=== PATIENT | male | born 1970 | race Caucasian/White ===

== ENCOUNTER 2018-09-16 03:59 | Inpatient (IN) ==
[2018-09-16] MEDS ORDERED: 0.9 % Sodium Chloride 1,000 ML IVC ONE (04:26)
[2018-09-16] MEDS ORDERED: Td (TENIVAC) Vaccine 0.5 ML VIAL IM ONE (04:26)
[2018-09-16] MEDS ORDERED: Isovue-370 500 ML INFUS..BTL IV ONE (04:26)
--- NOTE | 2018-09-16 04:31 | Emergency Department Note ---
Disposition Clinical Impression: Cellulitis of right upper extremity, Capsulitis of right shoulder, IVDU (intravenous drug user) Myositis of right upper arm Qualifiers: Myositis type: infective Qualified Code(s): M60.021 - Infective myositis, right upper arm Disposition: Admitted As Inpatient Condition: Fair Extremity Problem HPI - General Chief complaint: ED Extremity Problem,Nontraumatic Stated complaint: "Right Arm Edema" Time Seen by Provider: 09/16/18 04:12 Source: patient Mode of arrival: private vehicle Limitations: no limitations Nursing Notes Reviewed: Yes Vital Signs Reviewed: Yes - History of Present Illness HPI Narrative: This 48-year-old male with a long chronic history of IV drug use including heroin and methamphetamines. Presents [facility] department for evaluation of right arm swelling, redness. Patient states yesterday he used both heroin and methamphetamine in the antecubital area of his right arm, he did notice later in the day that he had some redness, swelling to this area. He also states he knows he has a "bad rotator cuff" to seem affected right shoulder. He states he only injects from the antecubitals down. Patient denies numbness, tingling, paresthesias, decreased range of motion, decreased strength. Pt Subjective Complaint: extremity pain, extremity swelling Onset (ago): day(s) Consistency: constant Injury Location: right, upper extremity Pain Scale: 7 Radiation: none Improves with: nothing Worsens with: palpation Associated symptoms: Reports: swelling, redness Context: other - Related Data Home Medications Medication Instructions Recorded Confirmed Ibuprofen [Motrin Ib] 2,400 mg PO TID PRN 09/16/18 09/16/18 Allergies Allergy/AdvReac Type Severity Reaction Status Date / Time No Known Allergies Allergy Verified 09/16/18 04:09 All systems ED: reviewed and negative except as stated. Review of Systems: As Per HPI Past Medical History - Past Medical History Attestation: Yes The following information was validated with the patient. Source: patient Medical history: Reports: hepatitis, hypertension Surgical history: Reports: orthopedic, other (Right clavicle) Psychiatric history: Reports: no psych history - Social History Smoking Status: Current every day smoker Smokeless Tobacco Status: No Alcohol use: Reports: none Drug use: Reports: marijuana, methamphetamine Physical Exam - General Limitations: no limitations General appearance: alert, in no apparent distress - Head Head exam: atraumatic, normocephalic, normal inspection - Eye Eye exam: Present: normal appearance - ENT ENT exam: mucous membranes moist - Neck Neck exam: Present: normal inspection, full ROM, trachea midline - Chest Chest inspection: Present: normal inspection, symmetric chest wall rise - Expanded Upper Extremity Exam Shoulder exam: Present: swelling (Slight to right shoulder), other Arm exam: Present: tenderness (Medial aspect from mid humeral area distally), swelling (Radial aspect anterior lateral mid humeral distally), erythema (Sling, irregular circumferential in the swelling) Elbow exam: Present: tenderness (Antecubital, more medial than lateral anteriorly), swelling (Antecubital, more medial than lateral anteriorly), erythema (Slight, irregular circumferentially to the swelling). Absent: pain w/ pronation/supination Forearm/Wrist exam: Present: normal inspection, full ROM Hand exam: Present: normal inspection, full ROM Vascular exam: Normal: capillary refill, radial pulse - Neurological Exam Neurological exam: Present: alert, oriented X3 - Psychiatric Psychiatric exam: Present: normal affect, normal mood - Skin Skin exam: Present: warm, dry, intact, normal color Course Course Narrative: Well-developed male in no acute distress. Respirations are easy and even. Upon arrival patient is afebrile, normotensive, non-tachycardic. Patient noted with small sores all over his body in various stages of healing, no apparent abscesses, lesions. Right upper extremity from mid forearm proximally to mid humerus on the medial, anterior aspect noted with edema, tenderness with palpation, warm to touch, slightly erythematous circumferential's the edema. Area is blanching. Concern for deep tissue infection, abscess in the muscles, fasciitis. Patient with any systemic symptoms at this time however we will obtain blood cultures and lactic acid. Obtain basic labs, we will treat, and a CT with contrast of the right upper extremity and reevaluate. Pt will be transitioned to the day shift team due to provider shift change Vital Signs Temperature 98.3 F 09/16/18 04:06 Pulse Rate 103 09/16/18 04:06 Respiratory Rate 16 09/16/18 04:06 Blood Pressure 157/99 09/16/18 04:06 O2 Sat by Pulse Oximetry 97 09/16/18 04:06 Temperature 98.1 F 09/16/18 19:42 Pulse Rate 75 09/16/18 19:42 Respiratory Rate 16 09/16/18 19:42 Blood Pressure 162/105 09/16/18 20:50 O2 Sat by Pulse Oximetry 98 09/16/18 19:42 Oxygen Delivery Oxygen Delivery Room Air Extremity Problem, Nontraumati - Lab Data Result diagrams: 09/16/18 05:39 09/16/18 05:39 Lab Results 09/16/18 09/16/18 09/16/18 Range/Units 04:40 05:20 05:39 WBC 10.2 (4.3-11.1) K/mcL RBC 3.91 L (4.19-5.50) M/mcL Hgb 11.1 L (12.9-16.9) g/dL Hct 34.9 L (37.5-50.1) % MCV 89.3 (83.0-100.0) fL MCH 28.4 (28.0-33.3) pg MCHC 31.8 (31.6-35.5) g/dL RDW 13.7 (11.5-14.5) % Plt Count 289 (140-400) K/mcL MPV 10.0 (9.4-12.4) fL Immature Gran % 0.4 (0-4) % Seg Neutrophils % 60.1 % Lymphocytes % 23.3 % Monocytes % 13.3 % Eosinophils % 2.7 % Basophils % 0.2 % Neutrophils # 6.1 (1.6-8.9) K/mcL Lymphocytes # 2.4 (0.6-4.6) K/mcL Monocytes # 1.4 H (0.0-1.3) K/mcL Eosinophils # 0.3 (0.0-0.6) K/mcL Basophils # 0.0 (0.0-0.2) K/mcL Sodium (136-145) mEq/L Potassium (3.5-5.1) mEq/L Chloride (98-107) mEq/L Carbon Dioxide (23-29) mEq/L BUN (6-20) mg/dL Creatinine (0.70-1.30) mg/dL Est GFR ( Amer) (> 60) Est GFR (Non-Af Amer) (> 60) BUN/Creatinine Ratio (6-26) Glucose (70-105) mg/dL Calculated Osmolality (280-300) Lactic Acid 0.9 (0.5-2.2) mmol/L Calcium (8.6-10.3) mg/dL Total Bilirubin (0.3-1.0) mg/dL Direct Bilirubin (0.0-0.2) mg/dL Indirect Bilirubin (0.0-1.2) mg/dL AST (13-39) Units/L ALT (7-52) Units/L Alkaline Phosphatase (34-104) Units/L Serum Total Protein (6.4-8.9) g/dL Albumin (3.5-5.7) g/dL Globulin (2.4-3.5) g/dL Albumin/Globulin Ratio (1.1-2.2) Specimen Rejected Clotted 09/16/18 Range/Units 05:39 WBC (4.3-11.1) K/mcL RBC (4.19-5.50) M/mcL Hgb (12.9-16.9) g/dL Hct (37.5-50.1) % MCV (83.0-100.0) fL MCH (28.0-33.3) pg MCHC (31.6-35.5) g/dL RDW (11.5-14.5) % Plt Count (140-400) K/mcL MPV (9.4-12.4) fL Immature Gran % (0-4) % Seg Neutrophils % % Lymphocytes % % Monocytes % % Eosinophils % % Basophils % % Neutrophils # (1.6-8.9) K/mcL Lymphocytes # (0.6-4.6) K/mcL Monocytes # (0.0-1.3) K/mcL Eosinophils # (0.0-0.6) K/mcL Basophils # (0.0-0.2) K/mcL Sodium 137 (136-145) mEq/L Potassium 4.1 (3.5-5.1) mEq/L Chloride 106 (98-107) mEq/L Carbon Dioxide 28 (23-29) mEq/L BUN 12 (6-20) mg/dL Creatinine 0.57 L (0.70-1.30) mg/dL Est GFR ( Amer) > 60 (> 60) Est GFR (Non-Af Amer) > 60 (> 60) BUN/Creatinine Ratio 21 (6-26) Glucose 177 H (70-105) mg/dL Calculated Osmolality 288 (280-300) Lactic Acid (0.5-2.2) mmol/L Calcium 8.0 L (8.6-10.3) mg/dL Total Bilirubin 0.2 L (0.3-1.0) mg/dL Direct Bilirubin 0.0 (0.0-0.2) mg/dL Indirect Bilirubin 0.2 (0.0-1.2) mg/dL AST 14 (13-39) Units/L ALT 14 (7-52) Units/L Alkaline Phosphatase 60 (34-104) Units/L Serum Total Protein 5.3 L (6.4-8.9) g/dL Albumin 2.7 L (3.5-5.7) g/dL Globulin 2.6 (2.4-3.5) g/dL Albumin/Globulin Ratio 1.0 L (1.1-2.2) Specimen Rejected S.Vidya - Tho Situation: Demographics, MOA Background: Presenting Complaint, Relevant PMH, Meds, & Allergies Assessment: Vital Signs, Course and respsone to treatment, Exam Concerns, Patient/Family Expectation, Pertinant Lab Results, Outstanding Labs Recommendation: Barrier(s) to disposition, Recommendation based on pending studies, treatments, or consults S.B.AEva Report Given to: MONTSE Alonso Repor Time: 06:15
[2018-09-16] MEDS ORDERED: Ketorolac 15 MG/ML VIAL IVP ONE (04:57)
[2018-09-16 05:56] LABS: Basophils % 0.2 %; Eosinophils # 0.3 K/mcL (0.0-0.6); Eosinophils % 2.7 %; Hematocrit 34.9 % (37.5-50.1); Hemoglobin 11.1 g/dL (12.9-16.9); Immature Granulocytes % 0.4 % (0-4); Lymphocytes # 2.4 K/mcL (0.6-4.6); Lymphocytes % 23.3 %; Mean Corpuscular HGB Conc 31.8 g/dL (31.6-35.5); Mean Corpuscular Hemoglobin 28.4 pg (28.0-33.3); Mean Corpuscular Volume 89.3 fL (83.0-100.0); Monocytes # 1.4 K/mcL (0.0-1.3); Monocytes % 13.3 %; Neutrophils # 6.1 K/mcL (1.6-8.9); Platelet Count 289 K/mcL (140-400); Red Blood Count 3.91 M/mcL (4.19-5.50); Red Cell Distribution Width 13.7 % (11.5-14.5); Segmented Neutrophils % 60.1 %
--- NOTE | 2018-09-16 06:01 | Emergency Department Note ---
Disposition Clinical Impression: Cellulitis of right upper extremity, Capsulitis of right shoulder, IVDU (intravenous drug user) Myositis of right upper arm Qualifiers: Myositis type: infective Qualified Code(s): M60.021 - Infective myositis, right upper arm Disposition: Admitted As Inpatient Condition: Fair General Adult HPI - General Chief complaint: ED Extremity Problem,Nontraumatic Stated complaint: "Right Arm Edema" Time Seen by Provider: 09/16/18 04:12 Source: patient Mode of arrival: private vehicle Limitations: no limitations Nursing Notes Reviewed: Yes Vital Signs Reviewed: Yes - History of Present Illness Pain Scale: 7 - Related Data Home Medications Medication Instructions Recorded Confirmed Ibuprofen [Motrin Ib] 2,400 mg PO TID PRN 09/16/18 09/16/18 Allergies Allergy/AdvReac Type Severity Reaction Status Date / Time No Known Allergies Allergy Verified 09/16/18 04:09 Past Medical History - Past Medical History Medical history: Reports: hepatitis, hypertension Surgical history: Reports: orthopedic, other (Right clavicle) Psychiatric history: Reports: no psych history - Social History Smoking Status: Current every day smoker Smokeless Tobacco Status: No Alcohol use: Reports: none Drug use: Reports: marijuana, methamphetamine Physical Exam - General Limitations: no limitations General appearance: alert, in no apparent distress Course Vital Signs Temperature 98.3 F 09/16/18 04:06 Pulse Rate 103 09/16/18 04:06 Respiratory Rate 16 09/16/18 04:06 Blood Pressure 157/99 09/16/18 04:06 O2 Sat by Pulse Oximetry 97 09/16/18 04:06 Temperature 98.1 F 09/16/18 19:42 Pulse Rate 75 09/16/18 19:42 Respiratory Rate 16 09/16/18 19:42 Blood Pressure 185/108 09/16/18 19:42 O2 Sat by Pulse Oximetry 98 09/16/18 19:42 Oxygen Delivery Oxygen Delivery Room Air Medical Decision Making - Lab Data Lab results reviewed: Yes I reviewed the patient's lab results. Result diagrams: 09/16/18 05:39 09/16/18 05:39 Lab Results 09/16/18 09/16/18 09/16/18 Range/Units 04:40 05:20 05:39 WBC 10.2 (4.3-11.1) K/mcL RBC 3.91 L (4.19-5.50) M/mcL Hgb 11.1 L (12.9-16.9) g/dL Hct 34.9 L (37.5-50.1) % MCV 89.3 (83.0-100.0) fL MCH 28.4 (28.0-33.3) pg MCHC 31.8 (31.6-35.5) g/dL RDW 13.7 (11.5-14.5) % Plt Count 289 (140-400) K/mcL MPV 10.0 (9.4-12.4) fL Immature Gran % 0.4 (0-4) % Seg Neutrophils % 60.1 % Lymphocytes % 23.3 % Monocytes % 13.3 % Eosinophils % 2.7 % Basophils % 0.2 % Neutrophils # 6.1 (1.6-8.9) K/mcL Lymphocytes # 2.4 (0.6-4.6) K/mcL Monocytes # 1.4 H (0.0-1.3) K/mcL Eosinophils # 0.3 (0.0-0.6) K/mcL Basophils # 0.0 (0.0-0.2) K/mcL Sodium (136-145) mEq/L Potassium (3.5-5.1) mEq/L Chloride (98-107) mEq/L Carbon Dioxide (23-29) mEq/L BUN (6-20) mg/dL Creatinine (0.70-1.30) mg/dL Est GFR ( Amer) (> 60) Est GFR (Non-Af Amer) (> 60) BUN/Creatinine Ratio (6-26) Glucose (70-105) mg/dL Calculated Osmolality (280-300) Lactic Acid 0.9 (0.5-2.2) mmol/L Calcium (8.6-10.3) mg/dL Total Bilirubin (0.3-1.0) mg/dL Direct Bilirubin (0.0-0.2) mg/dL Indirect Bilirubin (0.0-1.2) mg/dL AST (13-39) Units/L ALT (7-52) Units/L Alkaline Phosphatase (34-104) Units/L Serum Total Protein (6.4-8.9) g/dL Albumin (3.5-5.7) g/dL Globulin (2.4-3.5) g/dL Albumin/Globulin Ratio (1.1-2.2) Specimen Rejected Clotted 09/16/18 Range/Units 05:39 WBC (4.3-11.1) K/mcL RBC (4.19-5.50) M/mcL Hgb (12.9-16.9) g/dL Hct (37.5-50.1) % MCV (83.0-100.0) fL MCH (28.0-33.3) pg MCHC (31.6-35.5) g/dL RDW (11.5-14.5) % Plt Count (140-400) K/mcL MPV (9.4-12.4) fL Immature Gran % (0-4) % Seg Neutrophils % % Lymphocytes % % Monocytes % % Eosinophils % % Basophils % % Neutrophils # (1.6-8.9) K/mcL Lymphocytes # (0.6-4.6) K/mcL Monocytes # (0.0-1.3) K/mcL Eosinophils # (0.0-0.6) K/mcL Basophils # (0.0-0.2) K/mcL Sodium 137 (136-145) mEq/L Potassium 4.1 (3.5-5.1) mEq/L Chloride 106 (98-107) mEq/L Carbon Dioxide 28 (23-29) mEq/L BUN 12 (6-20) mg/dL Creatinine 0.57 L (0.70-1.30) mg/dL Est GFR ( Amer) > 60 (> 60) Est GFR (Non-Af Amer) > 60 (> 60) BUN/Creatinine Ratio 21 (6-26) Glucose 177 H (70-105) mg/dL Calculated Osmolality 288 (280-300) Lactic Acid (0.5-2.2) mmol/L Calcium 8.0 L (8.6-10.3) mg/dL Total Bilirubin 0.2 L (0.3-1.0) mg/dL Direct Bilirubin 0.0 (0.0-0.2) mg/dL Indirect Bilirubin 0.2 (0.0-1.2) mg/dL AST 14 (13-39) Units/L ALT 14 (7-52) Units/L Alkaline Phosphatase 60 (34-104) Units/L Serum Total Protein 5.3 L (6.4-8.9) g/dL Albumin 2.7 L (3.5-5.7) g/dL Globulin 2.6 (2.4-3.5) g/dL Albumin/Globulin Ratio 1.0 L (1.1-2.2) Specimen Rejected - Radiology Data Radiology results reviewed: Yes I reviewed the patient's radiology results. Upper Extremity CT 09/16/18 04:26 IMPRESSION: 1. The right upper extremity demonstrates normal alignment with no acute osseous abnormality or findings suspicious for osteomyelitis. 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 2. Nonspecific right glenohumeral effusion and findings suggesting capsulitis. Septic arthropathy cannot be excluded. 3. Right shoulder to distal forearm subcutaneous changes suggesting cellulitis with no subcutaneous abscess. 4. Right arm flexor compartment myositis with a medial mid to distal intramuscular forming abscess measuring approximately 1.9 x 3.3 x 5.1 cm. 5. Reactive right axillary lymphadenopathy. 6. Questionable mild right anterolateral chest wall cellulitis with no abscess. 7. The lungs demonstrate COPD with no acute pneumonia or intraparenchymal abscess. D/ / 09/16/2018 08:14:01 Serafin Meehan MD / juan a Interpreting Provider: Serafin Meehan MD Critical Care Time Critical Care Time: Yes Total Critical Care Time: 35 Attestation: Critical care performed: Time is exclusive of separately billable procedures. Time includes: direct patient care, patient reassessment, coordination of patient care, interpretation of data (laboratory data, radiology data, and respiratory data), review of patient's medical records, medical consultation and documentation of patient care. Procedures included in critical care time: Procedures excluded from critical care time: Attestation Statement - Attestation Attestation: I, Peter Lewis MD, personally evaluated this patient and discussed their management with the midlevel provicer, PAC/SHUFFLE BOARD OPERATOR. I reviewed the midlevel provider's note and agree with the documented findings, medical decision making, and plan of care. 48-year-old male with history of IV drug abuse presents to the emergency department with a complaint of pain and swelling and redness of the right arm which started yesterday and got worse throughout the day today. He has not noticed any fever. He does have a prior history of cellulitis secondary to his IV drug use. No cough or chest pain. No shortness of breath. On examination patient is a well-developed well-nourished well-appearing male in no acute distress. He is alert and oriented 3. There is no cyanosis or diaphoresis. Breath sounds are clear and equal bilaterally. Heart regular rate and rhythm. Abdomen soft and nontender with normal bowel sounds. There is diffuse swelling of the right arm from just above the elbow distally. There is erythema and warmth to touch along the medial aspect. Neurovascular function intact distally. Full flexion and extension of the hand and fingers. Labs reviewed. CT report pending. IV vancomycin initiated. We will consult the hospitalist for admission after the CT results. Also was also consulted.
[2018-09-16 06:11] LABS: Alanine Aminotransferase 14 Units/L (7-52); Albumin 2.7 g/dL (3.5-5.7); Alkaline Phosphatase 60 Units/L (34-104); Aspartate Amino Transferase 14 Units/L (13-39); BUN/Creatinine Ratio 21 (6-26); Bilirubin,Indirect 0.2 mg/dL (0.0-1.2); Bilirubin,Total 0.2 mg/dL (0.3-1.0); Blood Urea Nitrogen 12 mg/dL (6-20); Carbon Dioxide 28 mEq/L (23-29); Chloride 106 mEq/L (98-107); Globulin 2.6 g/dL (2.4-3.5); Glucose 177 mg/dL (70-105); Osmolality,Calculated 288 (280-300); Potassium 4.1 mEq/L (3.5-5.1); Sodium 137 mEq/L (136-145); Total Protein 5.3 g/dL (6.4-8.9); eGFR For Non-African Americans > 60 (> 60)
[2018-09-16] MEDS ORDERED: Piperacillin/Tazobactam 3.375 GM in 0.9 % Sodium Chloride Mini Bag 100 ML IVPB ONE (08:23)
--- NOTE | 2018-09-16 08:23 | Emergency Department Note ---
Disposition Clinical Impression: Cellulitis of right upper extremity, Capsulitis of right shoulder, IVDU (intravenous drug user) Myositis of right upper arm Qualifiers: Myositis type: infective Qualified Code(s): M60.021 - Infective myositis, right upper arm Disposition: Admitted As Inpatient Condition: Fair Referrals: NONE,PCP [Primary Care Provider] - Forms: ED Satisfaction Letter Extremity Problem HPI - General Chief complaint: ED Extremity Problem,Nontraumatic Stated complaint: "Right Arm Edema" Time Seen by Provider: 09/16/18 04:12 Source: patient Mode of arrival: private vehicle Limitations: no limitations Nursing Notes Reviewed: Yes Vital Signs Reviewed: Yes - History of Present Illness Consistency: constant Injury Location: right, upper extremity Pain Scale: 7 Improves with: nothing Worsens with: palpation Associated symptoms: Reports: swelling, redness - Related Data Previous Rx's Medication Instructions Recorded Meloxicam 7.5 mg PO DAILY #10 tablet 05/11/18 Allergies Allergy/AdvReac Type Severity Reaction Status Date / Time No Known Allergies Allergy Verified 09/16/18 04:09 Past Medical History - Past Medical History Medical history: Reports: hepatitis, hypertension Surgical history: Reports: orthopedic, other (Right clavicle) Psychiatric history: Reports: no psych history - Social History Smoking Status: Current every day smoker Smokeless Tobacco Status: No Alcohol use: Reports: none Drug use: Reports: marijuana, methamphetamine Physical Exam - General Limitations: no limitations General appearance: alert, in no apparent distress Course Course Narrative: Assumed care of this patient from RADHA Bush at shift change. Patient with hx of daily IV drug use presents with family for eval of RUE edema, erythema and pain. He has a hx of chronic right shoulder pain which has been worse than usual for the past two days. He had a rotator cuff surgery "many, many years ago". He does not know if he has hardware in the shoulder or not. No fever, chills, paraesthesias or weakness. Labs are unremarkable from an infectious standpoint. BUN/Cr normal. CT with IV contrast has been ordered but not done yet as they were waiting for the renal panel results. Patient returns from CT. Vanc is being hung. He denies any needs at this time. Distal pulses in RUE are normal. Cap refill in right fingers also normal. There is circumferential edema of the right elbow, and mild erythema around the right AC. No obvious abscess. No subcutaneous emphysema. CT read by radiologist as capsulitis, large joint effusion, cannot exclude septic arthritis, myositis with abscess in the biceps, and cellulitis of arm and possible of the chest wall. Also COPD. Patient re-examined. He has near normal ROM of the shoulder. He does not appear to have severe pain with ROM of the shoulder, elbow, wrist or hand. He has normal radial and ulnar pulses and normal cap refill. Sensation is symmetric in bilateral upper extremities. Do not suspect septic joint at this time. No compartment syndrome at this time. Patient certainly at risk for either. Will admit. Patient has been seen by Dr. Lewis. He agrees with the plan and has already done an attestation on this patient. (separate note) - Consultations Consultation #1: Jono ayala - Case discussed with Dr. Shearer. Time: 08:25 Consultation #2: Discussed case with the Hospitalist. He will accept the patient. Time: 08:34 Vital Signs Temperature 98.3 F 09/16/18 04:06 Pulse Rate 103 09/16/18 04:06 Respiratory Rate 16 09/16/18 04:06 Blood Pressure 157/99 09/16/18 04:06 O2 Sat by Pulse Oximetry 97 09/16/18 04:06 Temperature 98.3 F 09/16/18 04:06 Pulse Rate 91 09/16/18 08:12 Respiratory Rate 19 09/16/18 08:12 Blood Pressure 150/104 09/16/18 08:12 O2 Sat by Pulse Oximetry 97 09/16/18 08:12 Oxygen Delivery Oxygen Delivery Room Air Extremity Problem, Nontraumati - Medical Records Medical records reviewed: Yes I reviewed the patient's medical records. - Lab Data Lab results reviewed: Yes I reviewed the patient's lab results. Lab results narrative: Laboratory Last Values WBC 10.2 K/mcL (4.3-11.1) 09/16/18 05:39 RBC 3.91 M/mcL (4.19-5.50) L 09/16/18 05:39 Hgb 11.1 g/dL (12.9-16.9) L 09/16/18 05:39 Hct 34.9 % (37.5-50.1) L 09/16/18 05:39 MCV 89.3 fL (83.0-100.0) 09/16/18 05:39 MCH 28.4 pg (28.0-33.3) 09/16/18 05:39 MCHC 31.8 g/dL (31.6-35.5) 09/16/18 05:39 RDW 13.7 % (11.5-14.5) 09/16/18 05:39 Plt Count 289 K/mcL (140-400) 09/16/18 05:39 MPV 10.0 fL (9.4-12.4) 09/16/18 05:39 Immature Gran % 0.4 % (0-4) 09/16/18 05:39 Seg Neutrophils % 60.1 % 09/16/18 05:39 Lymphocytes % 23.3 % 09/16/18 05:39 Monocytes % 13.3 % 09/16/18 05:39 Eosinophils % 2.7 % 09/16/18 05:39 Basophils % 0.2 % 09/16/18 05:39 Neutrophils # 6.1 K/mcL (1.6-8.9) 09/16/18 05:39 Lymphocytes # 2.4 K/mcL (0.6-4.6) 09/16/18 05:39 Monocytes # 1.4 K/mcL (0.0-1.3) H 09/16/18 05:39 Eosinophils # 0.3 K/mcL (0.0-0.6) 09/16/18 05:39 Basophils # 0.0 K/mcL (0.0-0.2) 09/16/18 05:39 Sodium 137 mEq/L (136-145) 09/16/18 05:39 Potassium 4.1 mEq/L (3.5-5.1) 09/16/18 05:39 Chloride 106 mEq/L (98-107) 09/16/18 05:39 Carbon Dioxide 28 mEq/L (23-29) 09/16/18 05:39 BUN 12 mg/dL (6-20) 09/16/18 05:39 Creatinine 0.57 mg/dL (0.70-1.30) L 09/16/18 05:39 Est GFR ( Amer) > 60 (> 60) 09/16/18 05:39 Est GFR (Non-Af Amer) > 60 (> 60) 09/16/18 05:39 BUN/Creatinine Ratio 21 (6-26) 09/16/18 05:39 Glucose 177 mg/dL (70-105) H 09/16/18 05:39 Calculated Osmolality 288 (280-300) 09/16/18 05:39 Lactic Acid 0.9 mmol/L (0.5-2.2) 09/16/18 05:20 Calcium 8.0 mg/dL (8.6-10.3) L 09/16/18 05:39 Total Bilirubin 0.2 mg/dL (0.3-1.0) L 09/16/18 05:39 Direct Bilirubin 0.0 mg/dL (0.0-0.2) 09/16/18 05:39 Indirect Bilirubin 0.2 mg/dL (0.0-1.2) 09/16/18 05:39 AST 14 Units/L (13-39) 09/16/18 05:39 ALT 14 Units/L (7-52) 09/16/18 05:39 Alkaline Phosphatase 60 Units/L (34-104) 09/16/18 05:39 Serum Total Protein 5.3 g/dL (6.4-8.9) L 09/16/18 05:39 Albumin 2.7 g/dL (3.5-5.7) L 09/16/18 05:39 Globulin 2.6 g/dL (2.4-3.5) 09/16/18 05:39 Albumin/Globulin Ratio 1.0 (1.1-2.2) L 09/16/18 05:39 Specimen Rejected Clotted 09/16/18 04:40 Result diagrams: 09/16/18 05:39 09/16/18 05:39 Lab Results 09/16/18 09/16/18 09/16/18 Range/Units 04:40 05:20 05:39 WBC 10.2 (4.3-11.1) K/mcL RBC 3.91 L (4.19-5.50) M/mcL Hgb 11.1 L (12.9-16.9) g/dL Hct 34.9 L (37.5-50.1) % MCV 89.3 (83.0-100.0) fL MCH 28.4 (28.0-33.3) pg MCHC 31.8 (31.6-35.5) g/dL RDW 13.7 (11.5-14.5) % Plt Count 289 (140-400) K/mcL MPV 10.0 (9.4-12.4) fL Immature Gran % 0.4 (0-4) % Seg Neutrophils % 60.1 % Lymphocytes % 23.3 % Monocytes % 13.3 % Eosinophils % 2.7 % Basophils % 0.2 % Neutrophils # 6.1 (1.6-8.9) K/mcL Lymphocytes # 2.4 (0.6-4.6) K/mcL Monocytes # 1.4 H (0.0-1.3) K/mcL Eosinophils # 0.3 (0.0-0.6) K/mcL Basophils # 0.0 (0.0-0.2) K/mcL Sodium (136-145) mEq/L Potassium (3.5-5.1) mEq/L Chloride (98-107) mEq/L Carbon Dioxide (23-29) mEq/L BUN (6-20) mg/dL Creatinine (0.70-1.30) mg/dL Est GFR ( Amer) (> 60) Est GFR (Non-Af Amer) (> 60) BUN/Creatinine Ratio (6-26) Glucose (70-105) mg/dL Calculated Osmolality (280-300) Lactic Acid 0.9 (0.5-2.2) mmol/L Calcium (8.6-10.3) mg/dL Total Bilirubin (0.3-1.0) mg/dL Direct Bilirubin (0.0-0.2) mg/dL Indirect Bilirubin (0.0-1.2) mg/dL AST (13-39) Units/L ALT (7-52) Units/L Alkaline Phosphatase (34-104) Units/L Serum Total Protein (6.4-8.9) g/dL Albumin (3.5-5.7) g/dL Globulin (2.4-3.5) g/dL Albumin/Globulin Ratio (1.1-2.2) Specimen Rejected Clotted 09/16/18 Range/Units 05:39 WBC (4.3-11.1) K/mcL RBC (4.19-5.50) M/mcL Hgb (12.9-16.9) g/dL Hct (37.5-50.1) % MCV (83.0-100.0) fL MCH (28.0-33.3) pg MCHC (31.6-35.5) g/dL RDW (11.5-14.5) % Plt Count (140-400) K/mcL MPV (9.4-12.4) fL Immature Gran % (0-4) % Seg Neutrophils % % Lymphocytes % % Monocytes % % Eosinophils % % Basophils % % Neutrophils # (1.6-8.9) K/mcL Lymphocytes # (0.6-4.6) K/mcL Monocytes # (0.0-1.3) K/mcL Eosinophils # (0.0-0.6) K/mcL Basophils # (0.0-0.2) K/mcL Sodium 137 (136-145) mEq/L Potassium 4.1 (3.5-5.1) mEq/L Chloride 106 (98-107) mEq/L Carbon Dioxide 28 (23-29) mEq/L BUN 12 (6-20) mg/dL Creatinine 0.57 L (0.70-1.30) mg/dL Est GFR ( Amer) > 60 (> 60) Est GFR (Non-Af Amer) > 60 (> 60) BUN/Creatinine Ratio 21 (6-26) Glucose 177 H (70-105) mg/dL Calculated Osmolality 288 (280-300) Lactic Acid (0.5-2.2) mmol/L Calcium 8.0 L (8.6-10.3) mg/dL Total Bilirubin 0.2 L (0.3-1.0) mg/dL Direct Bilirubin 0.0 (0.0-0.2) mg/dL Indirect Bilirubin 0.2 (0.0-1.2) mg/dL AST 14 (13-39) Units/L ALT 14 (7-52) Units/L Alkaline Phosphatase 60 (34-104) Units/L Serum Total Protein 5.3 L (6.4-8.9) g/dL Albumin 2.7 L (3.5-5.7) g/dL Globulin 2.6 (2.4-3.5) g/dL Albumin/Globulin Ratio 1.0 L (1.1-2.2) Specimen Rejected - Radiology Data Radiology results reviewed: Yes I reviewed the patient's radiology results. Upper Extremity CT 09/16/18 04:26 IMPRESSION: 1. The right upper extremity demonstrates normal alignment with no acute osseous abnormality or findings suspicious for osteomyelitis. 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 2. Nonspecific right glenohumeral effusion and findings suggesting capsulitis. Septic arthropathy cannot be excluded. 3. Right shoulder to distal forearm subcutaneous changes suggesting cellulitis with no subcutaneous abscess. 4. Right arm flexor compartment myositis with a medial mid to distal intramuscular forming abscess measuring approximately 1.9 x 3.3 x 5.1 cm. 5. Reactive right axillary lymphadenopathy. 6. Questionable mild right anterolateral chest wall cellulitis with no abscess. 7. The lungs demonstrate COPD with no acute pneumonia or intraparenchymal abscess. D/ : / 09/16/2018 08:14:01 Serafin Meehan MD / juan a Interpreting Provider: Serafin Meehan MD
[2018-09-16] MEDS ORDERED: traMADol 50 MG TABLET PO PRN (09:16)
[2018-09-16] MEDS ORDERED: Naloxone 0.4 MG/ML INJ IVP PRN (09:16)
[2018-09-16] MEDS ORDERED: Acetaminophen 325 MG TABLET PO PRN (09:16)
[2018-09-16] MEDS ORDERED: *HR* OxyCODONE Oral Soln 5 MG/5 ML UD.LIQ PO PRN (09:16)
--- NOTE | 2018-09-16 09:33 | Internal Med History&Physical ---
Addendum entered and electronically signed by Krys Padilla MD 09/16/18 10:19: Will add zosyn as well to cover GNR and anaerobics at this point but may consider deescalate per blood/abscess culture. Original Note: <Sergei Viera - Last Filed: 09/16/18 09:29> Date of Encounter: 09/16/18 Time of Encounter: 09:29 Internal Medicine - H&P: HPI Chief complaint: Right arm swelling Admitted From: Home Plans for Post Hospital Care: Home History of present illness: Mr. Mar is a 48 year old male with significant past mental history of IV drug use specifically heroine, methamphetamine use, hepatitis C, history of septic joints in his clavicle and left foot, history of MRSA, hypertension hyperlipidemia and chronic smoker presents the emergency department with right upper extremity swelling. He states that he has been injecting IV drugs for many years and recently switched to his right arm as he is having difficulty injecting in his left arm. Roughly 3 days ago he noticed some swelling in his distal right upper extremity that started to spread up his arm towards his shoulder. He has difficulty with flexing his fingers due to the swelling and st ates that he had been using heroine to treat his pain. He also noticed decreased mobility in his right shoulder and with the increased in swelling this concerned him to be seen at the emergency department. He denies any fevers, chills, diaphoresis, lightheadedness, dizziness, weakness in any of extremities, shortness of breath, chest pain, palpitations, abdominal pains, nausea vomiting diarrhea constipation, urinary changes or any other concerning ulcers. He does have multiple pick colunga on his body but he is not concerned about their status. He denies any other concerns at this time that he would like to have addressed. He does mention that with his frequent heroin abuse he will start withdrawing in the hospital and is nervous that he will wind up leaving the hospital to seek further IV drug use if we cannot help him with his withdrawal symptoms. Past Med Surg Social Fam HX - Past Medical History Medical history: hepatitis, hypertension Additional medical history: SNORTS METH, AND LAST SHOT UP X 3MONTHS AGO BUT ONLY SNORTS AND TAKES STUFF BY MOUTH. Psychiatric history: no psych history - Past Surgical History Surgical History: orthopedic, other (Right clavicle) Additional surgical history: CLAVICAL REPAIR AND FOOT SURGERY - Social History Smoking Status: Current every day smoker Smokeless Tobacco Status: No Alcohol use: none Drug use: marijuana, methamphetamine Internal Medicine - H&P: Meds Ibuprofen [Motrin Ib] 2,400 mg PO TID PRN 09/16/18 [History] Allergy/AdvReac Type Severity Reaction Status Date / Time No Known Allergies Allergy Verified 09/16/18 04:09 All Systems PM: A 10-system review of systems was performed and is negative for pertinent findings except as documented above in the HPI. - Constitutional Constitutional: no anorexia, no chills, no excessive sweating, no fatigue, no falls, no weakness - EENT Eyes: as per HPI, no blurry vision, no diplopia Nose, mouth and throat: no dental pain, no mouth pain - Breasts Breasts: swelling (Right) - Cardiovascular Cardiovascular ROS IM: as per HPI, no chest pain, no claudication, no diaphoresis, no dyspnea, no dyspnea on exertion, no edema, no irregular heart rhythm, no lightheadedness, no palpitations - Respiratory Respiratory: no cough, no dyspnea, no dyspnea on exertion - Gastrointestinal Gastrointestinal: no constipation, no diarrhea, no melena, no nausea, no vomiting - Genitourinary Genitourinary ROS male: no dysuria - Musculoskeletal Musculoskeletal ROS IM: arthralgias, joint swelling (Right elbow), limited range of motion (Right glenohumeral joint), stiffness (Right shoulder) - Integumentary Integumentary IM: new lesions, non-healing lesions, rash, skin ulcer - Neurological Neurological ROS: as per HPI, no confusion, no convulsions, no dizziness - Endocrine Endocrine IM: no excessive sweating - Constitutional Vitals: Temp Pulse Resp BP Pulse Ox 98.3 F 91 19 150/104 97 09/16/18 04:06 09/16/18 08:12 09/16/18 08:12 09/16/18 08:12 09/16/18 08:12 General appearance: Present: A&O X 3 Exam: Gen. alert oriented interactive in no acute distress HEENT normocephalic, atraumatic, pupils equal reactive, poor dentition oral mucosa moist, trachea midline Chest: Right chest demonstrates fullness, erythema, but no fullness on palpation Cardiac: Tachycardia, radial pulses 2+ bilateral Respiratory: Clear to auscultation bilateral Abdomen: Soft, nontender to palpation, positive bowel sounds Extremities: Bilateral extremities demonstrate multiple injection sites and superficial sores nonhealing, right upper extremity demonstrates significant swelling, erythema and fullness within the anterior forearm. There is decreased range of motion at the right glenohumeral joint, right elbow and wrist joints Internal Med - H&P Results - Labs CBC & Chem 7: 09/16/18 05:39 09/16/18 05:39 Labs: Short CBC 09/16/18 Range/Units 05:39 WBC 10.2 (4.3-11.1) K/mcL Hgb 11.1 L (12.9-16.9) g/dL Hct 34.9 L (37.5-50.1) % Plt Count 289 (140-400) K/mcL Neutrophils # 6.1 (1.6-8.9) K/mcL BMP 09/16/18 05:39 Sodium 137 Potassium 4.1 Chloride 106 Carbon Dioxide 28 BUN 12 Creatinine 0.57 L Glucose 177 H Calcium 8.0 L Liver Function 09/16/18 Range/Units 05:39 Total Bilirubin 0.2 L (0.3-1.0) mg/dL Direct Bilirubin 0.0 (0.0-0.2) mg/dL AST 14 (13-39) Units/L ALT 14 (7-52) Units/L Alkaline Phosphatase 60 (34-104) Units/L Albumin 2.7 L (3.5-5.7) g/dL - Impressions ITS Impressions Upper Extremity CT 09/16/18 04:26 IMPRESSION: 1. The right upper extremity demonstrates normal alignment with no acute osseous abnormality or findings suspicious for osteomyelitis. 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 2. Nonspecific right glenohumeral effusion and findings suggesting capsulitis. Septic arthropathy cannot be excluded. 3. Right shoulder to distal forearm subcutaneous changes suggesting cellulitis with no subcutaneous abscess. 4. Right arm flexor compartment myositis with a medial mid to distal intramuscular forming abscess measuring approximately 1.9 x 3.3 x 5.1 cm. 5. Reactive right axillary lymphadenopathy. 6. Questionable mild right anterolateral chest wall cellulitis with no abscess. 7. The lungs demonstrate COPD with no acute pneumonia or intraparenchymal abscess. D/ / 09/16/2018 08:14:01 Serafin Meehan MD / juan a Interpreting Provider: Serafin Meehan MD - Assessment and plan (1) Myositis of right upper arm Current Visit: Yes Status: Acute Assessment and plan: Myositis secondary to cellulitis and abscess formation as patient is an IV drug user. Plan as listed above Qualifiers: Myositis type: infective Qualified Code(s): M60.021 - Infective myositis, right upper arm (2) Cellulitis of right upper extremity Current Visit: Yes Status: Acute Assessment and plan: Cellulitis and abscess of distal forearm secondary to IV drug use. - Orthopedic surgery to drain abscess and further evaluation - Blood cultures obtained, awaiting final results and sensitivity - Start IV vancomycin with high suspicion for MRSA - Patient has a history of MRSA septic joints and osteomyelitis with previous debridement of the right clavicle in 2006 - Pain management with Toradol, tramadol for moderate pain and sublingual oxycodone with severe pain in the setting of acute infection. (3) Capsulitis of right shoulder Current Visit: Yes Status: Acute Assessment and plan: Capsulitis, patient has restricted motion of the right glenohumeral joints, likely secondary to significant erythema and cellulitis. - Starting vancomycin antibiotic coverage suspect MRSA - We will treat underlining/overlying infection and it joint is still restricted may need physical therapy versus further evaluation of orthopedic surgery (4) IVDU (intravenous drug user) Current Visit: Yes Status: Acute Assessment and plan: IV drug abuseheroin He admits to methamphetamine use - Current and significant previous history of drug abuse (5) Hypertension Current Visit: Yes Status: Acute Assessment and plan: Patient has stated hypertension, currently not on any antihypertensives. - With cellulitis and increased risk for sepsis will avoid any antihypertensive but will add on if blood pressure remains high. Qualifiers: Qualified Code(s): I10 - Essential (primary) hypertension (6) Hepatitis C Current Visit: Yes Status: Acute Assessment and plan: Known history of hepatitis C, current IV drug abuser, untreated. Qualifiers: Viral hepatitis chronicity: chronic Qualified Code(s): B18.2 - Chronic viral hepatitis C (7) Tobacco abuse Current Visit: Yes Status: Acute Assessment and plan: Patient is an every day smoker, smokes 1 pack per day - Start nicotine patch (8) DVT prophylaxis Current Visit: Yes Status: Acute Assessment and plan: Lovenox 40 mg subcutaneous every morning - Time Spent With Patient Total time spent is greater than 50% in coordination of care (as documented) at patient's floor/unit and/or counseling patient: <Krys Padilla - Last Filed: 09/16/18 10:13> Date of Encounter: 09/16/18 Internal Medicine - H&P: HPI History of present illness: Mr. Mar is a 48 year old male All Systems PM: A 10-system review of systems was performed and is negative for pertinent findings except as documented above in the HPI. - Constitutional Vitals: Temp Pulse Resp BP Pulse Ox 98.3 F 91 19 150/104 97 09/16/18 04:06 09/16/18 08:12 09/16/18 08:12 09/16/18 08:12 09/16/18 08:12 Internal Med - H&P Results - Labs CBC & Chem 7: 09/16/18 05:39 09/16/18 05:39 Labs: Short CBC 09/16/18 Range/Units 05:39 WBC 10.2 (4.3-11.1) K/mcL Hgb 11.1 L (12.9-16.9) g/dL Hct 34.9 L (37.5-50.1) % Plt Count 289 (140-400) K/mcL Neutrophils # 6.1 (1.6-8.9) K/mcL BMP 09/16/18 05:39 Sodium 137 Potassium 4.1 Chloride 106 Carbon Dioxide 28 BUN 12 Creatinine 0.57 L Glucose 177 H Calcium 8.0 L Liver Function 09/16/18 Range/Units 05:39 Total Bilirubin 0.2 L (0.3-1.0) mg/dL Direct Bilirubin 0.0 (0.0-0.2) mg/dL AST 14 (13-39) Units/L ALT 14 (7-52) Units/L Alkaline Phosphatase 60 (34-104) Units/L Albumin 2.7 L (3.5-5.7) g/dL - Impressions ITS Impressions Upper Extremity CT 09/16/18 04:26 IMPRESSION: 1. The right upper extremity demonstrates normal alignment with no acute osseous abnormality or findings suspicious for osteomyelitis. 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 2. Nonspecific right glenohumeral effusion and findings suggesting capsulitis. Septic arthropathy cannot be excluded. 3. Right shoulder to distal forearm subcutaneous changes suggesting cellulitis with no subcutaneous abscess. 4. Right arm flexor compartment myositis with a medial mid to distal intramuscular forming abscess measuring approximately 1.9 x 3.3 x 5.1 cm. 5. Reactive right axillary lymphadenopathy. 6. Questionable mild right anterolateral chest wall cellulitis with no abscess. 7. The lungs demonstrate COPD with no acute pneumonia or intraparenchymal abscess. D/ / 09/16/2018 08:14:01 Serafin Meehan MD / juan a Interpreting Provider: Serafin Meehan MD - Assessment and plan (1) Myositis of right upper arm Current Visit: Yes Status: Acute Qualifiers: Myositis type: infective Qualified Code(s): M60.021 - Infective myositis, right upper arm (2) Cellulitis of right upper extremity Current Visit: Yes Status: Acute (3) Capsulitis of right shoulder Current Visit: Yes Status: Acute (4) IVDU (intravenous drug user) Current Visit: Yes Status: Acute (5) Hypertension Current Visit: Yes Status: Acute Qualifiers: Qualified Code(s): I10 - Essential (primary) hypertension (6) Hepatitis C Current Visit: Yes Status: Acute Qualifiers: Viral hepatitis chronicity: chronic Qualified Code(s): B18.2 - Chronic viral hepatitis C (7) Tobacco abuse Current Visit: Yes Status: Acute (8) DVT prophylaxis Current Visit: Yes Status: Acute - Time Spent With Patient Total time spent is greater than 50% in coordination of care (as documented) at patient's floor/unit and/or counseling patient: - Attending Attestation I have seen and examined this patient independently. I have discussed with resident physician Dr. Viera regarding the management plan. Agree with the documentation.
[2018-09-16] MEDS ORDERED: *HR* LORazepam 2 MG/ML VIAL IVP PRN ×3 (12:58)
[2018-09-16] MEDS ORDERED: *HR* Promethazine 25 MG/ML VIAL IVP PRN (12:58)
[2018-09-16] MEDS ORDERED: Gadolinium Contrast Agent (WT Based) IV PRN (13:14)
--- NOTE | 2018-09-16 13:25 | Orthopedic Consult Note ---
Date of Encounter: 09/16/18 Time of Encounter: 13:25 Assessment and Plan (1) Capsulitis of right shoulder Current Visit: Yes Status: Acute The diagnosis and treatment options were discussed with the patient. He has an abscess of the right forearm but his main pain is with the shoulder. Will obtain an MRI with contrast of the shoulder/humerus to evaluate for abscess and bone and glenohumeral joint involvement. After discussing the pros and cons of mikala atment options including non-operative and operative intervention, the patient has elected to proceed with right forearm irrigation and debridement and right shoulder arthroscopic irrigation and debridement at this time. Will proceed with surgery tomorrow after MRI performed. The risks and benefits of the procedure were fully explained in detail, including but not limited to the risk of infection, neurovascular injury, continued pain or stiffness, failure of surgery, reinjury, or need for additional surgery, DVT, PE, general risks of anesthesia and loss of limb or life. No guarantees were given or implied and all questions were answered. The patient understands all the risks and does wish to proceed with written consent. NPO at OR. (2) Cellulitis of right upper extremity Current Visit: Yes Status: Acute History of Present Illness HPI: Mr. Mar is a 48 year old male with significant past mental history of IVDA, hepatitis C, history of septic joints in his clavicle and left foot, history of MRSA, hypertension, hyperlipidemia and chronic smoker admitted with right upper extremity swelling and pain. Noticed swelling in his forearm a few days ago but has minimal pain. Pain is worse in his right shoulder. Shoulder pain has been ongoing for several months but has worsened recently. Worse with range of motion. He denies any fevers, chills, diaphoresis, shortness of breath, chest pain, abdominal pains, nausea, vomiting. Past Med Surg Social Fam HX - Past Medical History Medical history: hepatitis, hypertension Additional medical history: SNORTS METH, AND LAST SHOT UP X 3MONTHS AGO BUT ONLY SNORTS AND TAKES STUFF BY MOUTH. Psychiatric history: no psych history - Past Surgical History Surgical History: orthopedic, other Additional surgical history: CLAVICAL REPAIR AND FOOT SURGERY - Social History Smoking Status: Current every day smoker Smokeless Tobacco Status: No Alcohol use: none Drug use: marijuana, methamphetamine Medications and Allergies Ibuprofen [Motrin Ib] 2,400 mg PO TID PRN 12/06/18 [History] Allergy/AdvReac Type Severity Reaction Status Date / Time No Known Allergies Allergy Verified 09/16/18 04:09 All Systems Reviewed: The remainder of the systems were reviewed and are negative except as noted in the HPI Physical Exam - Constitutional Vitals: Temp Pulse Resp BP Pulse Ox 98.3 F 91 19 150/104 97 09/16/18 04:06 09/16/18 08:12 09/16/18 08:12 09/16/18 08:12 09/16/18 08:12 Exam: Consult Exam: Constitutional -Vitals reviewed -The patient is well developed and well nourished. -Mood is pleasant. -The patient is well groomed. Psychiatric -The patient is fully alert and oriented x 3. Respiratory: -Respiratory effort normal Abdomen: -Soft abdomen -Non tender -Non distended: Left upper extremity: -No deformities. Track colunga down left arm. -No tenderness to palpation throughout. -No significant pain with passive motion of the shoulder, elbow, wrist, and fingers within the limits of the bed. -Able to make an "OK" sign, cross the index and long fingers, and extend the thumb. -Sensation grossly intact to light touch throughout the median, radial, and ulnar distributions. -Radial pulse is present; Fingers have good capillary refill. Right upper extremity: -Diffuse forearm swelling. Compartments soft and compressible. Track col[place]a down arm. Nontender over forearm. No significant swelling or erythema proximally on humerus or shoulder. -Tenderness over shoulder. Pain with passive and active ROM at the shoulder. -No significant pain with passive motion of the elbow, wrist, and fingers within the limits of the bed. -Able to make an "OK" sign, cross the index and long fingers, and extend the thumb. -Sensation grossly intact to light touch throughout the median, radial, and ulnar distributions. -Radial pulse is present; Fingers have good capillary refill. Left lower extremity: -No deformities. The overlying skin is intact. No obvious signs of acute trauma. -No tenderness to palpation throughout. -No pain with passive motion of the hip, knee, ankle, and toes within the limits of the bed. -No pain with axial loading of the thigh. -Able to dorsiflex and plantarflex the ankle and toes. -Sensation is grossly intact to light touch throughout the sural, saphenous, superficial peroneal, and deep peroneal distributions. -Toes have good capillary refill. Right lower extremity: -No deformities. The overlying skin is intact. No obvious signs of acute trauma. -No tenderness to palpation throughout. -No pain with passive motion of the hip, knee, ankle, and toes within the limits of the bed. -No pain with axial loading of the thigh. -Able to dorsiflex and plantarflex the ankle and toes. -Sensation is grossly intact to light touch throughout the sural, saphenous, superficial peroneal, and deep peroneal distributions. -Toes have good capillary refill. Results - Labs Result Diagrams: 09/16/18 05:39 09/16/18 05:39 Labs: Abnormal lab results RBC 3.91 M/mcL (4.19-5.50) L 09/16/18 05:39 Hgb 11.1 g/dL (12.9-16.9) L 09/16/18 05:39 Hct 34.9 % (37.5-50.1) L 09/16/18 05:39 Monocytes # 1.4 K/mcL (0.0-1.3) H 09/16/18 05:39 Creatinine 0.57 mg/dL (0.70-1.30) L 09/16/18 05:39 Glucose 177 mg/dL (70-105) H 09/16/18 05:39 Calcium 8.0 mg/dL (8.6-10.3) L 09/16/18 05:39 Total Bilirubin 0.2 mg/dL (0.3-1.0) L 09/16/18 05:39 Serum Total Protein 5.3 g/dL (6.4-8.9) L 09/16/18 05:39 Albumin 2.7 g/dL (3.5-5.7) L 09/16/18 05:39 Albumin/Globulin Ratio 1.0 (1.1-2.2) L 09/16/18 05:39 H & H 09/16/18 Range/Units 05:39 Hgb 11.1 L (12.9-16.9) g/dL Hct 34.9 L (37.5-50.1) % All other labs normal. - Diagnostic results Shoulder CT: report reviewed, image reviewed Elbow CT: report reviewed, image reviewed (Upper extremity CT shows diffuse inflammation and capsulitis of the shoulder, right forearm abscess) Consult Discharge Plan - Plan Referrals: Loren Freeman CNP [Advanced Practice Nurse] - 09/29/18 10:45 am (Please bring your new patient packet filled out, photo ID, insurance card and any medications you are on. If you need to cancel, please give a 24 hour notice. Thank you)
[2018-09-16] MEDS: Ketorolac 30 MG/ML VIAL IVP PRN (15:53)
[2018-09-16] MEDS: 0.9 % Sodium Chloride 1,000 ML IVC SCH (15:54)
[2018-09-16] MEDS ORDERED: *HR* Heparin 5,000 UNIT/ML VIAL SQ SCH (18:00)
--- NOTE | 2018-09-16 18:38 | Anesthesia Evaluation PreOp ---
Date of Encounter: 09/16/18 - Past History Planned Operation: Right Arm I & D Cardiac History: HTN Pulmonary History: Smoker Other Medical History: Hepatic (hepatitis C) Anesthesia History: No Prior Anesthetic Complications, Past Anesthesia Alcohol Use: none Drug use: marijuana, methamphetamine Medications and Allergies Ibuprofen [Motrin Ib] 2,400 mg PO TID PRN 09/16/18 [History] Allergy/AdvReac Type Severity Reaction Status Date / Time No Known Allergies Allergy Verified 09/16/18 04:09 - Meds/Allergy Pre-op Review Medications Reviewed: Yes Allergies Reviewed: Yes Beta Blockers on Current Med List: No Anesthesia Results - Labs 09/16/18 05:39 09/16/18 05:39 - Imaging EKG: report reviewed (09/23/2017 SINUS RHYTHM WITH SHORT GA INTERVAL) Anesthesia Exam Vital Signs/O2 Sat, Most Current Temp Pulse Resp BP Pulse Ox 98.1 F 90 17 184/111 100 09/16/18 15:49 09/16/18 15:49 09/16/18 15:49 09/16/18 15:49 09/16/18 15:49 Height: 6'/1.83m Weight: 199 lbs/90.446 kg - HEENT Pupil (Motor): EOMI Mallampati: II Teeth: Normal Oral Opening: Greater than 3 - HEALTH EDUCATION SPECIALIST LOC: Oriented HEALTH EDUCATION SPECIALIST Motor: Normal RUE, Normal LUE, Normal RLE, Normal LLE, Normal Face HEALTH EDUCATION SPECIALIST Sensory: Normal: RUE, LUE, RLE, LLE, Face - Cardiac Rhythm: Regular Murmur: None - Pulmonary Breath Sounds: bilateral Clear Respiratory Effort: Symmetrical Anesthesia Assess/Plan ASA Score: 3 Level of consciousness: Cooperative, Oriented, Tranquil Anesthetic Plan: General Monitoring Plan: Standard Monitors Recovery Plan: PACU
[2018-09-16] MEDS: Piperacillin/Tazobactam 3.375 GM in 0.9 % Sodium Chloride Mini Bag 100 ML IVPB SCH (19:53)
--- NOTE | 2018-09-16 20:48 | Anesthesia Evaluation PreOp ---
Date of Encounter: 09/16/18 Time of Encounter: 21:10 - Past History Planned Operation: I&D R-arm Cardiac History: HTN, Hyperlipidemia Pulmonary History: Smoker, COPD PRECIPITATION EQUIPMENT TENDER History: Other (IVDA and associated withdrawal) Other Medical History: Hepatic (+Hep C) Anesthesia History: No Prior Anesthetic Complications, Past Anesthesia (R- Clavicle repair, Foot surgery) Alcohol Use: none Drug use: marijuana, methamphetamine, IV Drug Use (Long Hx of IVDA specifically heroin & Methamphetamine. Per admission H&P Pt has recetnly starting shooting up in his R-arm as he is having difficulty injecting into his L-arm) Medications and Allergies Ibuprofen [Motrin Ib] 2,400 mg PO TID PRN 09/16/18 [History] Allergy/AdvReac Type Severity Reaction Status Date / Time No Known Allergies Allergy Verified 09/16/18 04:09 - Meds/Allergy Pre-op Review Medications Reviewed: Yes Allergies Reviewed: Yes Beta Blockers on Current Med List: No Anesthesia Results - Labs 09/16/18 05:39 09/16/18 05:39 Laboratory Results Impressions Upper Extremity CT 09/16/18 04:26 IMPRESSION: 1. The right upper extremity demonstrates normal alignment with no acute osseous abnormality or findings suspicious for osteomyelitis. 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 2. Nonspecific right glenohumeral effusion and findings suggesting capsulitis. Septic arthropathy cannot be excluded. 3. Right shoulder to distal forearm subcutaneous changes suggesting cellulitis with no subcutaneous abscess. 4. Right arm flexor compartment myositis with a medial mid to distal intramuscular forming abscess measuring approximately 1.9 x 3.3 x 5.1 cm. 5. Reactive right axillary lymphadenopathy. 6. Questionable mild right anterolateral chest wall cellulitis with no abscess. 7. The lungs demonstrate COPD with no acute pneumonia or intraparenchymal abscess. D/ / 09/16/2018 08:14:01 Serafin Meehan MD / juan a Interpreting Provider: Serafin Meehan MD Shoulder MRI 09/16/18 13:14 IMPRESSION: 1. Exam somewhat limited by patient motion artifact. In addition, no adequate postcontrast sequences of the shoulder were obtained. 2. Subcutaneous and patchy intramuscular edema in the right upper extremity compatible with cellulitis/myositis. No definite well-defined drainable fluid collection. 3. Moderate nonspecific glenohumeral joint effusion with synovitis. If there is clinical concern for septic arthritis please consider arthrocentesis. 4. No convincing evidence of osteomyelitis or other acute osseous abnormality. 5. Full-thickness full with supraspinatus and subscapularis tendon tears with significant medial retraction. 6. Intermediate grade partial-thickness articular surface tear of the infraspinatus myotendinous junction. 7. Moderate intra-articular long head biceps tendinosis. 8. Superior labral tear. 9. Moderate acromioclavicular degenerative changes. D/ / Dinh Aldridge MD / Dinh Aldridge MD Interpreting Provider: Dinh Aldridge MD Humerus MRI 09/16/18 13:19 IMPRESSION: 1. Exam somewhat limited by patient motion artifact. In addition, no adequate postcontrast sequences of the shoulder were obtained. 2. Subcutaneous and patchy intramuscular edema in the right upper extremity compatible with cellulitis/myositis. No definite well-defined drainable fluid collection. 3. Moderate nonspecific glenohumeral joint effusion with synovitis. If there is clinical concern for septic arthritis please consider arthrocentesis. 4. No convincing evidence of osteomyelitis or other acute osseous abnormality. 5. Full-thickness full with supraspinatus and subscapularis tendon tears with significant medial retraction. 6. Intermediate grade partial-thickness articular surface tear of the infraspinatus myotendinous junction. 7. Moderate intra-articular long head biceps tendinosis. 8. Superior labral tear. 9. Moderate acromioclavicular degenerative changes. D/ / Dinh Aldridge MD / Dinh Aldridge MD Interpreting Provider: Dinh Aldridge MD - Imaging EKG: report reviewed (86bpm - SINUS RHYTHM WITH SHORT VA INTERVAL Electronically Signed On 09-23-2017 15:58:28 EST by Kenya Chester) Anesthesia Exam Vital Signs Temp Pulse Resp BP Pulse Ox 09/16/18 20:50 162/105 09/16/18 19:42 98.1 F 75 16 185/108 98 09/16/18 15:49 98.1 F 90 17 184/111 100 09/16/18 08:12 91 19 150/104 97 09/16/18 06:38 95 15 154/102 96 09/16/18 04:06 98.3 F 103 16 157/99 97 Intake and Output 09/16/18 09/16/18 09/16/18 07:59 15:59 23:59 Intake Total 1000 / 1000 350 / 350 Balance 1000 / 1000 350 / 350 Intake: IV Fluids 1000 / 1000 350 / 350 0.9 % Sodium Chloride 1,000 ML 1000 / 1000 @ 999 mls/hr IVC .Q1H1M ONE Rx# :[id number] Zosyn 3.375 GM In 0.9 % Sodium 100 / 100 Chloride (Mini-Bag +) 100 ML @ 25 mls/hr IVPB ONCE ONE Rx#: [id number] Vancocin 1,500 MG In 0.9 % 250 / 250 Sodium Chloride 250 ML @ 166.67 mls/hr IVPB ONCE ONE Rx#: [id number] Other: Stool Size Moderate Stool Consistency soft Weight 90.446 kg Patient Weight 09/16/18 23:59 Weight 90.446 kg Height: 6' Weight: 199# BMI = 27 - HEENT Pupil (Motor): Pupils equal, EOMI Mallampati: II Teeth: Missing, Edentulous (upper edentulous), Poor dentition Oral Opening: Greater than 3 - PRECIPITATION EQUIPMENT TENDER LOC: Oriented PRECIPITATION EQUIPMENT TENDER Motor: Normal RUE, Normal LUE, Normal RLE, Normal LLE, Normal Face PRECIPITATION EQUIPMENT TENDER Sensory: Normal: RUE, LUE, RLE, LLE, Face - Cardiac Murmur: None - Pulmonary Breath Sounds: left Clear Respiratory Effort: Symmetrical Anesthesia Assess/Plan ASA Score: 3 Level of consciousness: Cooperative, Oriented, Agitated Anesthetic Plan: General Recovery Plan: PACU Anes Supervising Prov Stmt: Pt seen/evaluated, R&B discussed, questions answered and consent obtained. Jose Suarez MD
[2018-09-16 23:47] LABS: Amphetamine Screen,Urine Negative ng/mL (Cutoff=1000); Barbiturate Screen,Urine Negative ng/mL (Cutoff=200); Benzodiazepines Screen,Urine Negative ng/mL (Cutoff=200); Cannabinoid Screen,Urine Negative ng/mL (Cutoff = 50); Cocaine Screen,Urine Negative ng/mL (Cutoff= 300); Opiate Screen,Urine Positive ng/mL (Cutoff=300); Phencyclidine Screen,Urine Negative ng/mL (Cutoff=25)
[2018-09-17] MEDS ORDERED: *HR* OxyCODONE Immed Rel 5 MG TABLET PO PRN ×2 (00:03→20:36)
[2018-09-17] MEDS ORDERED: traMADol 50 MG TABLET PO PRN ×2 (00:08→20:36)
[2018-09-17] MEDS: *HR* LORazepam 1 MG TABLET PO SCH ×6 (00:18→17:01)
--- NOTE | 2018-09-17 00:18 | Event Note ---
Date of Encounter: 09/16/18 Time of Encounter: 19:47 Alerted by pts. nurse STACY Ayala that patient was extremely hypertensive up BP of 185/108. Patient has known history of IV drug use, specifically using heroin and methamphetamines. Patient states he has been injecting IV drugs for many years and left arm but switch to right arm recently due to difficulty injecting and left arm. Patient admitted to edema and right upper extremity and is now on antibiotics. No urine tox screen done on admission so stat urine tox screen ordered which was positive for opiates. One-time order for 10 mg IVP hydralazine ordered with instructions to monitor patient's BP every 15 minutes. Follow-up BP 162/105. HR 97. Third BP check 176/104. Second one-time dose of 5 mg IVP hydralazine ordered. Follow-up blood pressure 160/94. BP 174/104 and heart rate of 93. Third BP check 162/93. Notified by patient's nurse at 23:57 that patient was becoming increasingly restless and diaphoretic. Nurse administered ordered 1 mg IVP Ativan. Discussed patient with Dr. Merrill regarding pts. apparent drug withdrawal w/recommendation for PO Ativan 1 mg Q4HR PRN and PO immediate release Oxycodone 5 mg Q6HR PRN. CIWA scale discontinued since this is drug withdrawal and not alcohol withdrawal. VS at 23:24: 98.3F temp, HR 88, RR 16, BP 149/92, and SPO2 99% on room air. Will begin 1 mg PO Ativan now if 1 mg IVP Ativan is not effective in treating pts. anxiety and continue Q4HR PRN as ordered. Nurse instructed to monitor pt. closely and inform me of VS results.
[2018-09-17] MEDS: Piperacillin/Tazobactam 3.375 GM in 0.9 % Sodium Chloride Mini Bag 100 ML IVPB SCH ×3 (04:19→22:29)
[2018-09-17 05:40] LABS: Basophils % 0.1 %; Eosinophils # 0.1 K/mcL (0.0-0.6); Eosinophils % 0.4 %; Hematocrit 40.1 % (37.5-50.1); Immature Granulocytes % 0.4 % (0-4); Lymphocytes # 2.1 K/mcL (0.6-4.6); Lymphocytes % 14.7 %; Mean Corpuscular HGB Conc 32.7 g/dL (31.6-35.5); Mean Corpuscular Hemoglobin 28.1 pg (28.0-33.3); Mean Corpuscular Volume 86.1 fL (83.0-100.0); Mean Platelet Volume 9.5 fL (9.4-12.4); Monocytes # 1.1 K/mcL (0.0-1.3); Monocytes % 7.9 %; Neutrophils # 10.6 K/mcL (1.6-8.9); Platelet Count 383 K/mcL (140-400); Red Blood Count 4.66 M/mcL (4.19-5.50); Red Cell Distribution Width 13.4 % (11.5-14.5); Segmented Neutrophils % 76.5 %
[2018-09-17 05:42] LABS: Hemoglobin 13.1 g/dL (12.9-16.9)
[2018-09-17] MEDS ORDERED: *HR* Enoxaparin 40 MG/0.4 ML SYRINGE SQ SCH (06:00)
[2018-09-17] MEDS: 0.9 % Sodium Chloride 1,000 ML IVC SCH (06:58)
[2018-09-17] MEDS: Ketorolac 30 MG/ML VIAL IVP PRN (09:43)
[2018-09-17] MEDS ORDERED: NIFEdipine XL (24 HR) 30 MG TAB.ER.24 PO SCH (13:45)
[2018-09-17] MEDS ORDERED: *HR* Midazolam HCl 2 MG/2 ML VIAL ONE (15:39)
[2018-09-17] MEDS ORDERED: *HR* FentaNYL (PF) 100 MCG/2 ML VIAL ONE (15:39)
[2018-09-17] MEDS ORDERED: *HR* Propofol 200 MG/20 ML VIAL IVP ONE (15:39)
[2018-09-17] MEDS ORDERED: *HR* Succinylcholine 200 MG/10 ML VIAL IVP ONE (15:43)
[2018-09-17] MEDS ORDERED: Dexamethasone 4 MG/ML VIAL ONE (15:43)
[2018-09-17] MEDS ORDERED: Lidocaine -MPF 2% 2 ML VIAL ONE (15:43)
[2018-09-17] MEDS ORDERED: Ondansetron 4 MG/2 ML VIAL ONE (15:43)
[2018-09-17] MEDS ORDERED: Lidocaine -MPF 4% 5 ML AMPUL ONE (15:44)
[2018-09-17] MEDS ORDERED: *HR* Labetalol 20 MG/4 ML SYRINGE IVP PRN ×2 (15:49→20:36)
[2018-09-17] MEDS ORDERED: *HR* OxyCODONE/APAP 5/325 TABLET PO PRN ×2 (15:49→20:36)
[2018-09-17] MEDS ORDERED: Ondansetron 4 MG/2 ML VIAL IVP ONE ×2 (15:49→20:36)
[2018-09-17] MEDS ORDERED: KETAMINE HCL 50 MG/ML SYRINGE IV ONE (18:14)
[2018-09-17] MEDS ORDERED: *HR* Morphine 10 MG/ML VIAL ONE ×2 (18:34→18:37)
--- NOTE | 2018-09-17 19:16 | Orthopedic Operative Note ---
Date of procedure: 09/17/18 Procedure: Procedure: 1. Right shoulder arthroscopic irrigation and extensive debridement 2. Right shoulder arthroscopic complete synovectomy 3. Right shoulder arthroscopic lysis of adhesions with manipulation under anesthesia 4. Right arm open irrigation and debridement of deep abscess Preoperative Diagnosis: Right septic shoulder, right arm abscess Postoperative Diagnosis: Same Surgeon: Zeke Umanzor MD Director Of Bands: None Anesthesia: General EBL: 20 cc Complications: None INDICATIONS: This is a 48 yo M IVDA with a several month history of right shoulder pain. Pain and stiffness has progressively worsened over the past several weeks, and he had developed swelling of the arm in addition to the pain in his shoulder. Imaging findings were consistent with an abscess posterior to the biceps musculature and a large effusion of the glenohumeral joint with capsulitis. Due to the patient's continued pain, exam and imaging findings, and medical history of IVDA, it was recommended he undergo right shoulder arthroscopy with irrigation and extensive debridement, synovectomy and open debridement of the arm abscess and treatments of other injuries as indicated. The risks and benefits of the procedure were fully explained. Those risks include but are not limited to, infection, neurovascular injury, continued pain, arthritis, stiffness of the shoulder, further injury, need for further surgery, DVT, PE, loss of limb, and loss of life. The patient understood all of these risks and wished to proceed. Informed consent was obtained. OPERATIVE REPORT: The patient was identified in the holding area. The right upper extremity was marked, the patient was taken to the operating room and placed in the supine position. All bony prominences were well padded. The anesthesiologist performed successful general anesthetic for the remainder of the case. The patient's head, neck and airway were secured and monitored throughout the case by anesthesia. The patient was then placed in the beachchair position. Preoperative antibiotics had been given on the floor. A surgical timeout was performed. The patient's arm was gently manipulated in all planes to facilitate entry of the arthroscope. A standard posterior portal was established. Cultures were taken immediately after entering the glenohumeral joint. Anterior portal was established using outstide in technique. Diagnostic shoulder arthroscopy was then performed. The glenohumeral joint was intact with no significant cartilage wear. The inferior labrum was intact. There was fraying of the anterior, posterior and superior labrum. There were no loose bodies within the joint. There was a full thickness tear of the supraspinatus and subscapularis with underlying fraying of the tendon edges. Shaver was introduced into the joint and the frayed aspect of the anterior, posterior and superior labrum and intraarticular biceps was mechanically debrided. The undersurface of the rotator cuff was debrided as well. There was extensive synovitis and capsulitis throughout the shoulder and several adhesions within the rotator interval. The i nterval adhesions were debrided with a shaver and wand to control any bleeding. The synovium was debrided and complete excision was performed working both through an anterior and posterior portal. The arthroscope was then removed from the joint and placed into the subacromial space from the posterior portal. There was a large amount of inflamed bursa in the subacromial space. This was debrided with a shaver working from anterior and posterior. Bursal side of the rotator cuff tear was debrided with a shaver as well. Greater than 6 L of NS was irrigated through the joint. The arthroscope was then removed from the joint. Portals were closed with 3-0 monocryl. The head of the bed was then brought back down to approximately 45 degrees. An incision was made over the anterior mid humerus. The deep fascia over the biceps was split and the biceps muscle was bluntly retracted, exposing a pocket of purulent fluid posterior to the muscle belly. This was cultured as well and then expressed from the wound. Any necrotic tissue was debrided and adhesions were broken up with a hemostat circumferentially. The wound was then copiously irrigated with 3L NS. Satisfied that there were no additional pockets of fluid, the incision was closed with 2-0 stratafix deep and a running 3-0 stratafix subcuticular. A sterile dressing was placed and the patient was placed in a sling. A sterile dressing was placed and the patient was placed in a abduction brace. The patient was awoken and taken to the PACU in stable condition. There were no complications. Post op plan: Antibiotics per the primary team and follow cultures. May discontinue sling when able. Was there an assistant director of residence life present: No Estimated blood loss (cc): 20
[2018-09-17] MEDS: *HR* HYDROmorphone (PF) 1 MG/ML SYRINGE IVP PRN ×4 (19:40→20:00)
--- NOTE | 2018-09-17 20:22 | Anesthesia Evaluation Post Op ---
Date of Encounter: 09/17/18 Time of Encounter: 20:17 - Discharge PostOp Status: Transfer Patient to floor (Patient's vital signs have been reviewed. Patient is stable postoperatively and has adequately recovered from anesthesia. Patient is determined to have stable airway patency and respiratory function including respiratory rate and oxygen saturation. Patient has a stable heart rate, blood pressure and adequate hydration. Patients mental status is acceptable. Patients temperature is appropriate. Pain and nausea are adequately controlled.)
[2018-09-17] MEDS ORDERED: Ketorolac 30 MG/ML VIAL IVP PRN (20:36)
[2018-09-17] MEDS ORDERED: Gadolinium Contrast Agent (WT Based) IV PRN (20:36)
[2018-09-17] MEDS ORDERED: *HR* Promethazine 25 MG/ML VIAL IVP PRN (20:36)
[2018-09-17] MEDS ORDERED: Naloxone 0.4 MG/ML INJ IVP PRN (20:36)
[2018-09-17] MEDS ORDERED: Acetaminophen 325 MG TABLET PO PRN (20:36)
[2018-09-17] MEDS ORDERED: traMADol 50 MG TABLET PO ONE (22:05)
[2018-09-17] MEDS ORDERED: cloNIDine HCl 0.1 MG TABLET PO ONE (22:11)
[2018-09-17] MEDS ORDERED: CloNIDine Patch 0.3 MG PATCH (WEEKLY) TD SCH (22:15)
[2018-09-18] MEDS ORDERED: *HR* LORazepam 1 MG TABLET PO SCH
--- NOTE | 2018-09-18 00:10 | Internal Med Progress Note ---
Hospitalist Progress Note - Encounter Date of Encounter: 09/17/18 Time of Encounter: 19:00 - Exam Vitals: Temp Pulse Resp BP Pulse Ox 98.0 F 93 15 148/94 100 09/17/18 23:17 09/17/18 23:17 09/17/18 23:17 09/17/18 23:17 09/17/18 23:17 Exam: xx - Assessment and Plan (1) Cellulitis of right upper extremity Current Visit: Yes Status: Acute (2) Myositis of right upper arm Current Visit: Yes Status: Acute (3) Septic arthritis of shoulder, right Current Visit: Yes Status: Acute (4) IVDU (intravenous drug user) Current Visit: Yes Status: Acute (5) Hypertension Current Visit: Yes Status: Acute (6) Hepatitis C Current Visit: Yes Status: Acute - Time Spent with Patient Total time spent is greater than 50% in coordination of care (as documented) at patient's floor/unit and/or counseling patient: 25 - 35 minutes Plan of Care Discussed with: patient Internal Medicine: Result - Labs CBC & Chem 7: 09/17/18 05:29 09/16/18 05:39 Labs: Short CBC 09/17/18 Range/Units 05:29 WBC 13.9 H (4.3-11.1) K/mcL Hgb 13.1 D (12.9-16.9) g/dL Hct 40.1 (37.5-50.1) % Plt Count 383 (140-400) K/mcL Neutrophils # 10.6 H (1.6-8.9) K/mcL Consult Discharge Plan - Plan Referrals: Loren Freeman UX MANAGER [Advanced Practice Nurse] - 09/29/18 10:45 am (Please bring your new patient packet filled out, photo ID, insurance card and any medications you are on. If you need to cancel, please give a 24 hour notice. Thank you) (2) Myositis of right upper arm Qualifiers: Myositis type: infective Qualified Code(s): M60.021 - Infective myositis, right upper arm (5) Hypertension Qualifiers: Qualified Code(s): I10 - Essential (primary) hypertension (6) Hepatitis C Qualifiers: Viral hepatitis chronicity: chronic Qualified Code(s): B18.2 - Chronic viral hepatitis C
[2018-09-18] MEDS ORDERED: diazePAM 10 MG TABLET PO PRN (00:20)
[2018-09-18] MEDS ORDERED: *HR* LORazepam 1 MG TABLET PO PRN (00:22)
[2018-09-18] MEDS ORDERED: *HR* FentaNYL (PF) 100 MCG/2 ML VIAL IVP ONE (00:58)
[2018-09-18 03:18] LABS: Basophils % 0.2 %; Eosinophils # 0.1 K/mcL (0.0-0.6); Eosinophils % 0.8 %; Hematocrit 37.4 % (37.5-50.1); Hemoglobin 12.2 g/dL (12.9-16.9); Immature Granulocytes % 0.4 % (0-4); Mean Corpuscular HGB Conc 32.6 g/dL (31.6-35.5); Mean Corpuscular Hemoglobin 27.9 pg (28.0-33.3); Mean Corpuscular Volume 85.6 fL (83.0-100.0); Mean Platelet Volume 9.6 fL (9.4-12.4); Monocytes # 1.1 K/mcL (0.0-1.3); Monocytes % 8.2 %; Platelet Count 399 K/mcL (140-400); Red Blood Count 4.37 M/mcL (4.19-5.50); Red Cell Distribution Width 13.2 % (11.5-14.5); Segmented Neutrophils % 75.4 %
[2018-09-18 03:49] LABS: Alanine Aminotransferase 14 Units/L (7-52); Alkaline Phosphatase 57 Units/L (34-104); Aspartate Amino Transferase 15 Units/L (13-39); BUN/Creatinine Ratio 18 (6-26); Bilirubin,Total 0.5 mg/dL (0.3-1.0); Blood Urea Nitrogen 12 mg/dL (6-20); Calcium 8.5 mg/dL (8.6-10.3); Carbon Dioxide 23 mEq/L (23-29); Chloride 105 mEq/L (98-107); Globulin 3.1 g/dL (2.4-3.5); Glucose 98 mg/dL (70-105); Osmolality,Calculated 286 (280-300); Potassium 3.9 mEq/L (3.5-5.1); Sodium 138 mEq/L (136-145); Total Protein 6.1 g/dL (6.4-8.9); eGFR For Non-African Americans > 60 (> 60)
[2018-09-18] MEDS ORDERED: Piperacillin/Tazobactam 3.375 GM in 0.9 % Sodium Chloride Mini Bag 100 ML IVPB SCH (04:00)
[2018-09-18] MEDS: Piperacillin/Tazobactam 3.375 GM in 0.9 % Sodium Chloride Mini Bag 100 ML IVPB SCH ×4 (05:25→21:01)
[2018-09-18] MEDS: *HR* Enoxaparin 40 MG/0.4 ML SYRINGE SQ SCH (05:27)
--- NOTE | 2018-09-18 06:22 | Event Note ---
<Sergei Sousa - Last Filed: 09/18/18 06:34> Date of Encounter: 09/18/18 Time of Encounter: 22:00 15:49: Patient discharged from PACU following right shoulder arthroscopic irrigation and extensive debridement, right shoulder arthroscopic complete synovectomy, right shoulder arthroscopic lysis of adhesions with manipulation under anesthesia, and right arm open irrigation and debridement of deep abscess by Dr. Zeke Umanzor. Patient had received Dilaudid while at PACU and was given Percocet when he returned to the floor. 22:00 Patient reporting severe pain. 22:05 One-time dose of Tramadol 100 mg ordered. 22:06 Nurse instructed to perform dysphasia screen before any medications or diet is ordered d/t pt. returning from Surgery. 22:12: Alerted by resident Dr. Ricardo Herron that pt. was in pain and threatening to leave AMA if his pain was not better controlled. D/t pts. drug abuse hx, Dr. Herron ordered 0.2 mg PO clonidine ONCE and 0.3 mg TD Fr clonidine patch at 22:15. BP 156/97. Pts. nurse instructed to monitor pt. and BP closely. 23:45: Resident Dr. Ricardo Herron consults myself and Dr. Merrill to look at pts. right upper extremity d/t edema, pain, and concern for possible compartment syndrome. 23:47: Went to assess pt. who was resting in bed. RUE very tight from the shoulder to the elbow with some tightness extending from elbow to wrist. Arm appeared paler than LUE. Radial pulses present. Instructed nurse to monitor pt. closely and notify myself, Dr. Herron, and/or Dr. Merrill of changes. 00:00 Discussed pt. w/Dr. Merrill w/confirmed concern for compartment syndrome in RUE. Dr. Merrill went to assess pt. 00:20 Dr. Merrill returns to Hospitalist office and feels the Dr. Umanzor needs notified of situation d/t concern for compartment syndrome and possible transfer if condition worsens. 00:51 Dr. Umanzor paged through [facility] w/no answer. [facility] instructed to continue paging per protocol until Dr. Umanzor is contacted. Dr. Umanzor is paged until approximately 02:30 w/o answer. 01:07 I sent Vocera to Dr. Umanzor stating Dr. Merrill is concerned about compartment syndrome in this patient's right arm. Arm is tight and painful which he likes CT or MRI? Vocera not answered. 01:[address] of the pts. RUE. 01:26 Dr. Love is paged through [facility] as he is investigation division captain. Dr. Love returns call and is briefed on the situation and is made aware of concern for compartment syndrome. Recommendation is for stockinette pole and ice on pts. arm. Ice applied to pts. arm. Stockinette not done d/t severe pain and tightness in RUE. 02:15 CT resulted and shows diffuse soft tissue edema throughout the visualized right arm most prominent involving the right upper arm or the muscles appear heterogeneous and somewhat enlarged especially medially. Multiple scattered foci of gas throughout the arm and extending into the shoulder and right chest. 4.4 x 3.1 cm heterogeneous high attenuation collection just inferior to the axilla in below the skin surface. This appears to communicate with the skin anteriorly and measures at least 4.4 x 3.1 cm extending into the deeper muscles. 02:30 CT results shown to Dr. Merrill. We go to see pt. w/Commercial Relief Driver. Pts. arm is now tighter from the shoulder to the wrist. Radial pulses are pres ent but radial pulse in right wrist weaker than left wrist. Pts. BP elevated. Nurse instructed to administer ordered IVP hydralazine. Assessed pt. until 02:48. 02:58 Dr. Lvoe paged through the [facility]. 03:21 Dr. Love returns page but I am w/pt. 03:23 Dr. Merrill calls [facility] and is told Dr. Love has called. Dr. Merrill connected w/Dr. Love and reiterates his concern for compartment syndrome based on increased swelling and weaker radial pulse in right radial pulse. Recommendation is for ice and elevation. 03:38 Dr. Umanzor responds to Dr. Merrill's phone. Situation is discussed w/Dr. Umanzor who states that someone will see the pt. Dr. Merrill reiterates concern for compartment syndrome. Dr. Umanzor states someone will see the pt. <Felipe Merrill - Last Filed: 09/18/18 19:21> Date of Encounter: 09/18/18 Discussed with and examined at length with Edgar Sousa CNP as noted above.
--- NOTE | 2018-09-18 07:22 | Orthopedics Progress Note ---
Date of Encounter: 09/18/18 Time of Encounter: 07:19 Subjective Interval history: Patient seen at 7 AM, patient status post irrigation debridement for infection. Patient with history of IVDA. Patient is well-known to me from previous surgeries years ago. Patient is sleeping and needed to be woken up. Examination of the right upper extremity reveals strong pulses in the hand. Patient denies numbness or tingling has no decreased sensation. Patient can make a fist without pain can flex and extend his elbow without pain patient does have swelling in the upper arm no swelling in the shoulder swelling is not tense or firm. Recommend aggressive treatment with moist heating pad, and therapy exercises to help reduce swelling in the right upper extremity. Patient has no clinical findings consistent with compartment syndrome. Patient will be reevaluated in 4 hours Objective Vital signs: Vital Signs Temp Pulse Resp BP Pulse Ox 09/18/18 05:15 171/103 09/18/18 03:44 96 16 159/91 99 09/18/18 03:21 98.0 F 87 16 163/111 98 09/17/18 23:17 98.0 F 93 15 148/94 100 09/17/18 22:04 98.1 F 86 16 156/97 100 09/17/18 22:00 99.7 F H 16 154/91 09/17/18 21:43 97.6 F 83 16 144/94 98 09/17/18 21:20 97.7 F 81 16 154/91 98 09/17/18 20:41 97.7 F 81 20 148/92 96 09/17/18 20:17 98.6 F 78 18 136/97 96 09/17/18 20:07 82 18 144/98 96 09/17/18 19:57 98.6 F 97 14 137/109 99 09/17/18 19:47 91 18 157/96 98 09/17/18 19:37 98 24 146/99 99 09/17/18 19:27 98 F 105 22 124/103 100 09/17/18 15:15 97.5 F L 113 20 158/98 97 09/17/18 13:17 171/104 09/17/18 10:58 98.1 F 90 26 177/109 97 Intake and Output 09/17/18 09/17/18 09/18/18 15:59 23:59 07:59 Intake Total 350 / 350 1100 / 1100 350 / 350 Output Total 20 / 20 Balance 350 / 350 1080 / 1080 350 / 350 Intake: IV Fluids 350 / 350 1100 / 1100 350 / 350 0.9 % Sodium Chloride 1,000 ML 1000 / 1000 @ 100 mls/hr IVC .Q10H [facility] Rx#: [id number] Zosyn 3.375 GM In 0.9 % Sodium 100 / 100 100 / 100 100 / 100 Chloride (Mini-Bag +) 100 ML @ 25 mls/hr IVPB Q8H [facility] Rx#: [id number] Vancocin 1,500 MG In 0.9 % 250 / 250 250 / 250 Sodium Chloride 250 ML @ 166.67 mls/hr IVPB Q12H [facility] Rx#: [id number] Oral 0 / 0 Output: Estimated Blood Loss Other: Meal Lunch NPO npo Percent of Meal Consumed 0% - Labs CBC & BMP: 09/18/18 02:34 09/18/18 02:34 Labs: Abnormal lab results WBC 13.2 K/mcL (4.3-11.1) H 09/18/18 02:34 Hgb 12.2 g/dL (12.9-16.9) L 09/18/18 02:34 Hct 37.4 % (37.5-50.1) L 09/18/18 02:34 MCH 27.9 pg (28.0-33.3) L 09/18/18 02:34 Neutrophils # 10.0 K/mcL (1.6-8.9) H 09/18/18 02:34 Creatinine 0.65 mg/dL (0.70-1.30) L 09/18/18 02:34 Calcium 8.5 mg/dL (8.6-10.3) L 09/18/18 02:34 Serum Total Protein 6.1 g/dL (6.4-8.9) L 09/18/18 02:34 Albumin 3.0 g/dL (3.5-5.7) L 09/18/18 02:34 Albumin/Globulin Ratio 1.0 (1.1-2.2) L 09/18/18 02:34 Urine Opiates Screen Positive ng/mL (Qgfsec=[id number]) H 09/16/18 23:24 Consult Discharge Plan - Plan Referrals: Loren Freeman, ADULT LITERACY INSTRUCTOR [Advanced Practice Nurse] - 09/29/18 10:45 am (Please bring your new patient packet filled out, photo ID, insurance card and any medications you are on. If you need to cancel, please give a 24 hour notice. Thank you)
[2018-09-18] MEDS: *HR* LORazepam 1 MG TABLET PO SCH (07:34)
[2018-09-18] MEDS: NIFEdipine XL (24 HR) 30 MG TAB.ER.24 PO SCH (09:39)
--- NOTE | 2018-09-18 11:07 | Orthopedics Progress Note ---
Date of Encounter: 09/18/18 Time of Encounter: 11:06 Subjective Interval history: Patient seen at 10:30 patient having drainage from biceps incision. Steri- Strips were removed area was cleaned and rosy were placed. Patient on exam still has swelling in the right upper arm, patient still has no pain with active and passive range of motion of the elbow full flexion and extension. Patient a lso denies any numbness or tingling in his fingers. Patient shoulder is soft. Therapist was in the room, we reviewed recommendations. Unfortunately the heating pad had not be used yet but is available now. Patient understands the plan, low suspicion of of any compartment syndrome based on clinical findings and exam. Patient will be allowed to eat. Objective Vital signs: Vital Signs Temp Pulse Resp BP Pulse Ox 09/18/18 09:00 97.8 F 91 18 158/100 09/18/18 05:15 171/103 09/18/18 03:44 96 16 159/91 99 09/18/18 03:21 98.0 F 87 16 163/111 98 09/17/18 23:17 98.0 F 93 15 148/94 100 09/17/18 22:04 98.1 F 86 16 156/97 100 09/17/18 22:00 99.7 F H 16 154/91 09/17/18 21:43 97.6 F 83 16 144/94 98 09/17/18 21:20 97.7 F 81 16 154/91 98 09/17/18 20:41 97.7 F 81 20 148/92 96 09/17/18 20:17 98.6 F 78 18 136/97 96 09/17/18 20:07 82 18 144/98 96 09/17/18 19:57 98.6 F 97 14 137/109 99 09/17/18 19:47 91 18 157/96 98 09/17/18 19:37 98 24 146/99 99 09/17/18 19:27 98 F 105 22 124/103 100 09/17/18 15:15 97.5 F L 113 20 158/98 97 09/17/18 13:17 171/104 Intake and Output 09/17/18 09/18/18 09/18/18 23:59 07:59 15:59 Intake Total 1100 / 1100 350 / 350 Output Total 400 / 400 Balance 1080 / 1080 350 / 350 -400 / -400 Intake: IV Fluids 1100 / 1100 350 / 350 0.9 % Sodium Chloride 1,000 ML 1000 / 1000 @ 100 mls/hr IVC .Q10H [facility] Rx#: [id number] Zosyn 3.375 GM In 0.9 % Sodium 100 / 100 100 / 100 Chloride (Mini-Bag +) 100 ML @ 25 mls/hr IVPB Q8H [facility] Rx#: [id number] Vancocin 1,500 MG In 0.9 % 250 / 250 Sodium Chloride 250 ML @ 166.67 mls/hr IVPB Q12H [facility] Rx#: [id number] Output: Urine 400 / 400 Estimated Blood Loss Other: Meal npo - Labs CBC & BMP: 09/18/18 02:34 09/18/18 02:34 Labs: Abnormal lab results WBC 13.2 K/mcL (4.3-11.1) H 09/18/18 02:34 Hgb 12.2 g/dL (12.9-16.9) L 09/18/18 02:34 Hct 37.4 % (37.5-50.1) L 09/18/18 02:34 MCH 27.9 pg (28.0-33.3) L 09/18/18 02:34 Neutrophils # 10.0 K/mcL (1.6-8.9) H 09/18/18 02:34 Creatinine 0.65 mg/dL (0.70-1.30) L 09/18/18 02:34 Calcium 8.5 mg/dL (8.6-10.3) L 09/18/18 02:34 Serum Total Protein 6.1 g/dL (6.4-8.9) L 09/18/18 02:34 Albumin 3.0 g/dL (3.5-5.7) L 09/18/18 02:34 Albumin/Globulin Ratio 1.0 (1.1-2.2) L 09/18/18 02:34 Urine Opiates Screen Positive ng/mL (Hrktnx=[id number]) H 09/16/18 23:24 Consult Discharge Plan - Plan Referrals: Loren Freeman, HANDMADE TILE ARTIST [Advanced Practice Nurse] - 09/29/18 10:45 am (Please bring your new patient packet filled out, photo ID, insurance card and any medications you are on. If you need to cancel, please give a 24 hour notice. Thank you)
[2018-09-18] MEDS: *HR* OxyCODONE/APAP 7.5/325 TABLET PO SCH ×2 (17:03→23:00)
[2018-09-18] MEDS: diazePAM 10 MG TABLET PO SCH (21:01)
--- NOTE | 2018-09-18 22:17 | Internal Med Progress Note ---
Hospitalist Progress Note - Encounter Date of Encounter: 09/18/18 Time of Encounter: 19:00 - Subjective Interval History: SUBJECTIVE: The patient had quite extensive surgery on his right shoulder/arm yesterday. This was for treatment of right shoulder septic arthritis/incision and drainage of right arm abscess. We have been observed quite a bit of swelling and pain in the area of the right shoulder/right upper extremity. The pain is significantly decreased, when compared to yesterday. The swelling has decreased quite a bit during the first 6-8 hours today. 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 He is extremely anxious. He feels like he is ready to leave the hospital soon. OBJECTIVE: Skin: Free of rash and discoloration. ENMT: Oral/pharyngeal mucosa is normal in appearance. Eyes: Sclera is white. There is no discharge from eyes. Respiratory: Normal breath sounds; no crackles or wheezes. CV: Heart is regular; no gallop or murmur. GI: Abdomen is soft and not tender. There is no palpable mass or visceromegaly. Neuro: There is no focal deficits. ADDITIONAL DATA: Hemoglobin is 12.2 with WBC of 13.2 thousand and normal platelet count. BMP is normal. ASSESSMENT AND PLAN: Septic arthritis of right shoulder with cellulitis/myositis of right upper arm. An abscess has been drained from upper portion of her right arm. We appreciate help from orthopedic surgery. The patient has daily dressings. He gets IV vancomycin/IV Zosyn. IV drug user. 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 We have to control his withdrawal symptoms/signs; to prevent him leaving the hospital. This is why I will put him on scheduled Percocet. He will get scheduled Valium and when necessary Ativan. Hypertension. Under fair control. Started him on Procardia XL yesterday. He is on clonidine patch. Hepatitis C. For outpatient treatment, when he is drugs free. - Exam Vitals: Temp Pulse Resp BP Pulse Ox 98.8 F 70 14 155/100 98 09/18/18 19:20 09/18/18 19:20 09/18/18 19:20 09/18/18 19:20 09/18/18 19:20 Exam: xx - Assessment and Plan (1) Cellulitis of right upper extremity Current Visit: Yes Status: Acute (2) Myositis of right upper arm Current Visit: Yes Status: Acute (3) Septic arthritis of shoulder, right Current Visit: Yes Status: Acute (4) IVDU (intravenous drug user) Current Visit: Yes Status: Acute (5) Hypertension Current Visit: Yes Status: Acute (6) Hepatitis C Current Visit: Yes Status: Acute - Time Spent with Patient Total time spent is greater than 50% in coordination of care (as documented) at patient's floor/unit and/or counseling patient: 25 - 35 minutes Plan of Care Discussed with: patient Internal Medicine: Result - Labs CBC & Chem 7: 09/18/18 02:34 09/18/18 02:34 Labs: Short CBC 09/18/18 Range/Units 02:34 WBC 13.2 H (4.3-11.1) K/mcL Hgb 12.2 L (12.9-16.9) g/dL Hct 37.4 L (37.5-50.1) % Plt Count 399 (140-400) K/mcL Neutrophils # 10.0 H (1.6-8.9) K/mcL BMP 09/18/18 02:34 Sodium 138 Potassium 3.9 Chloride 105 Carbon Dioxide 23 BUN 12 Creatinine 0.65 L Glucose 98 Calcium 8.5 L Liver Function 09/18/18 Range/Units 02:34 Total Bilirubin 0.5 (0.3-1.0) mg/dL AST 15 (13-39) Units/L ALT 14 (7-52) Units/L Alkaline Phosphatase 57 (34-104) Units/L Albumin 3.0 L (3.5-5.7) g/dL - Impressions Impressions Upper Extremity CT 09/18/18 01:24 IMPRESSION: Diffuse soft tissue edema throughout the visualized right arm most prominent involving the right upper arm were the muscles appear heterogeneous and somewhat enlarged especially medially. Multiple scattered foci of gas throughout the arm and extending into the shoulder and right chest. 4.4 x 3.1 cm heterogeneous high attenuation collection just inferior to the axilla in below the skin surface. This appears to communicate with the skin anteriorly and measures at least 4.4 x 3.1 cm extending into the deeper muscles. Right renal stone. Emphysema. D/ / Nicole Ulrich MD / Nicole Ulrich MD Interpreting Provider: Nicole Ulrich MD Consult Discharge Plan - Plan Referrals: Loren Freeman AUDIT CONSULTANT [Advanced Practice Nurse] - 09/29/18 10:45 am (Please bring your new patient packet filled out, photo ID, insurance card and any medications you are on. If you need to cancel, please give a 24 hour notice. Thank you) (2) Myositis of right upper arm Qualifiers: Myositis type: infective Qualified Code(s): M60.021 - Infective myositis, right upper arm (5) Hypertension Qualifiers: Qualified Code(s): I10 - Essential (primary) hypertension (6) Hepatitis C Qualifiers: Viral hepatitis chronicity: chronic Qualified Code(s): B18.2 - Chronic viral hepatitis C
[2018-09-19] MEDS: *HR* Enoxaparin 40 MG/0.4 ML SYRINGE SQ SCH (05:02)
[2018-09-19] MEDS: *HR* OxyCODONE/APAP 7.5/325 TABLET PO SCH ×2 (05:02→10:29)
[2018-09-19] MEDS: Piperacillin/Tazobactam 3.375 GM in 0.9 % Sodium Chloride Mini Bag 100 ML IVPB SCH (05:03)
[2018-09-19 05:57] LABS: Basophils % 0.2 %; Eosinophils # 0.2 K/mcL (0.0-0.6); Eosinophils % 1.8 %; Hematocrit 38.9 % (37.5-50.1); Hemoglobin 12.6 g/dL (12.9-16.9); Immature Granulocytes % 0.4 % (0-4); Lymphocytes # 2.3 K/mcL (0.6-4.6); Lymphocytes % 19.8 %; Mean Corpuscular HGB Conc 32.4 g/dL (31.6-35.5); Mean Corpuscular Hemoglobin 27.6 pg (28.0-33.3); Mean Corpuscular Volume 85.1 fL (83.0-100.0); Mean Platelet Volume 9.4 fL (9.4-12.4); Monocytes # 1.3 K/mcL (0.0-1.3); Monocytes % 10.7 %; Neutrophils # 7.9 K/mcL (1.6-8.9); Platelet Count 435 K/mcL (140-400); Red Blood Count 4.57 M/mcL (4.19-5.50); Red Cell Distribution Width 13.3 % (11.5-14.5); Segmented Neutrophils % 67.1 %
[2018-09-19 06:16] LABS: BUN/Creatinine Ratio 21 (6-26); Blood Urea Nitrogen 16 mg/dL (6-20); Carbon Dioxide 22 mEq/L (23-29); Chloride 103 mEq/L (98-107); Potassium 3.7 mEq/L (3.5-5.1); Sodium 134 mEq/L (136-145)
[2018-09-19 06:17] LABS: Alanine Aminotransferase 17 Units/L (7-52); Albumin 3.1 g/dL (3.5-5.7); Alkaline Phosphatase 61 Units/L (34-104); Aspartate Amino Transferase 19 Units/L (13-39); Bilirubin,Total 0.3 mg/dL (0.3-1.0); Calcium 8.7 mg/dL (8.6-10.3); Globulin 3.2 g/dL (2.4-3.5); Glucose 141 mg/dL (70-105); Osmolality,Calculated 282 (280-300); Total Protein 6.3 g/dL (6.4-8.9); eGFR For Non-African Americans > 60 (> 60)
[2018-09-19 08:00] VITALS: BP 147/98
[2018-09-19] MEDS: diazePAM 10 MG TABLET PO SCH (08:12)
[2018-09-19] MEDS: NIFEdipine XL (24 HR) 30 MG TAB.ER.24 PO SCH (08:12)
--- NOTE | 2018-09-19 11:47 | Discharge Summary ---
Orders not resulted at time of discharge: Pending orders 09/16/18 04:48 Culture,Blood [BC] Stat 09/16/18 09:16 ECG 12 lead ECG [ECG] Routine 09/17/18 18:45 Culture,Anaerobic [RM] Routine Culture,Body Fluid [RM] Routine Culture,Wound [RM] Routine 09/17/18 19:04 Culture,Anaerobic [RM] Routine Culture,Wound [RM] Routine 09/20/18 04:00 CBC [Complete Blood Count] [HEME] AM 0400 CMP [Comprehensive Metabolic Panel] AM 0400 Date of Encounter: 09/19/18 Time of Encounter: 11:41 - Discharge Diagnosis (1) Cellulitis of right upper extremity Priority: Primary Status: Acute (2) Myositis of right upper arm Priority: Primary Status: Acute Qualifiers: Myositis type: infective Qualified Code(s): M60.021 - Infective myositis, right upper arm (3) Septic arthritis of shoulder, right Priority: Primary Status: Acute Qualifiers: Septic arthritis organism: due to unspecified organism Qualified Code(s): M00.9 - Pyogenic arthritis, unspecified (4) IVDU (intravenous drug user) Priority: Secondary Status: Acute (5) Hypertension Priority: Secondary Status: Chronic Qualifiers: Qualified Code(s): I10 - Essential (primary) hypertension (6) Hepatitis C Priority: Secondary Status: Chronic Qualifiers: Viral hepatitis chronicity: chronic Qualified Code(s): B18.2 - Chronic viral hepatitis C Hospital course: HOSPITAL COURSE: The patient is a 48-year-old male with long-standing (over 20 years) history of IV heroine/meth use. We admitted him with symptoms and signs of septic arthritis in right shoulder/abscess in the upper portion of her right arm. He underwent surgery on 09/17/18 (Dr. Umanzor): 1. Right shoulder arthroscopic irrigation and extensive debridement 2. Right shoulder arthroscopic complete synovectomy 3. Right shoulder arthroscopic lysis of adhesions with manipulation under anesthesia 4. Right arm open irrigation and debridement of deep abscess The patient was treated with IV vancomycin and IV Zosyn during this hospitalization. On the day of discharge I was notified by his nurse that his living AMA. I approached him as soon as possible. I asked him to wait at least a few minutesI wanted to give him a prescription for antibiotics. He got a prescription for Bactrim double strength. I did not know any results from his wound cultures at that time. The cultures came later negative. This is an abbreviated discharge summary. CONDITION AT DISCHARGE: The patient seems to be very anxious. He tells me that he cannot control his arch of leaving the hospital. He understands that it puts him under the risk of developing sepsis (possible ). Skin: Free of rash and discoloration. The surgical wounds are looking good. Musculoskeletal: The swelling of his right shoulder/arm area has significantly decreased. Respiratory: Normal breath sounds with no crackles and wheezes bilaterally. CV: Heart is regular with no gallop or murmur. GI: Abdomen is flat and soft with no palpable mass or visceromegaly. Neuro exam: There is no focal deficits. Normal speech, swallowing and gait. Discharge discussed with: patient, nurse Time spent discussing smoking cessation with patient: 3 to 10 minutes - Time Spent with Patient Total time spent providing and/or coordinating discharge services: Greater than 30 minutes (40 minutes..) - Discharge Medications Prescriptions: NIFEdipine XL (24 HR) [Procardia XL] 30 mg PO DAILY #30 tab.er.24 Sulfamethoxazole/Trimeth DS [Bactrim DS] 1 each PO BID #20 tablet Home Medications: Ibuprofen [Motrin Ib] 2,400 mg PO TID PRN 09/16/18 [History] NIFEdipine XL (24 HR) [Procardia XL] 30 mg PO DAILY #30 tab.er.24 09/19/18 [Rx] Sulfamethoxazole/Trimeth DS [Bactrim DS] 1 each PO BID #20 tablet 09/19/18 [Rx] Allergies/Adverse Reactions: Allergy/AdvReac Type Severity Reaction Status Date / Time No Known Allergies Allergy Verified 09/16/18 04:09 Date of admission: 09/16/18 09:50 Primary care physician: PCP NONE Consults: 09/16/18 08:32 Consult to Orthopedic Surgery [CONS] Stat Consulting Provider: [facility] Reason for Consult: RUE myositis, capsultits, cellulitis, IVDA Time Notified: 08:33 Call Completed: Yes 09/16/18 12:58 Consult to Server Engineer [CONS] Routine Reason for SW Consult: recurrent IV drug use Discharging clinician: Mor Li Anticipated date of discharge: 09/19/18 - Constitutional Vitals: Temp Pulse Resp BP Pulse Ox 97.2 F L 88 17 147/98 98 09/19/18 07:59 09/19/18 07:59 09/19/18 07:59 09/19/18 07:59 09/19/18 08:44 General appearance: Present: A&O X 3, answers questions appropriately Exam: xx - Patient Status Disposition: Home, Self-Care Condition: Fair - Discharge Instructions Follow Up With: Loren Freeman ORTHOPEDIC PHYSICIAN [Advanced Practice Nurse] - 09/29/18 10:45 am (Please bring your new patient packet filled out, photo ID, insurance card and any medications you are on. If you need to cancel, please give a 24 hour notice. Thank you) - Diet and Activity Activity: resume usual activities as tolerated Diet: regular diet - VTE Reasons for not Prescribing Prophylaxis: Treatment not Indicated - Low risk for VTE Deep Vein Thrombosis/Pulmonary Embolism Present on Admission: No
[2018-09-19] MEDS ORDERED: Aminoglycoside Consult 1 EACH MC ONE (11:59)
== END 2018-09-19 12:00 | disposition home or self-care (01) | DRG 951 ==
LOC: EMEROOARM 03:59 → SUATTDRO 09:50 → 3ANU 09:50
PROVIDERS: ADMIT Internal Medicine; ATTEND Internal Medicine

== ENCOUNTER 2019-02-03 15:28 | Observation (INO) ==
[2019-02-03] MEDS ORDERED: Ketorolac 30 MG/ML VIAL IVP PRN (17:54)
[2019-02-03] MEDS ORDERED: Naloxone 0.4 MG/ML INJ IVP PRN (17:54)
[2019-02-03] MEDS ORDERED: *HR* HYDROcodone/Acet 5/325 mg TABLET PO PRN (17:54)
[2019-02-03] MEDS ORDERED: Ondansetron 4 MG/2 ML VIAL IVP PRN (17:54)
[2019-02-03] MEDS ORDERED: Ketorolac 15 MG/ML VIAL IVP PRN (17:54)
--- NOTE | 2019-02-03 18:04 | Internal Med History&Physical ---
Date of Encounter: 02/03/19 Time of Encounter: 17:40 Internal Medicine - H&P: HPI Chief complaint: L foot cellulitis Admitted From: Hospital to Hospital Transfer History of present illness: Mr. Mar is a 48 year old male with history of hypertension noncompliant to medications and IV drug use was transferred from [place] ED due to L toe cellulitis. He was first seen at the OSH on 02/01 for the same problem, which started after him kicking a rock 3-4 days prior. He was advised for inpatient admission for IV antibiotics but, after demonstrating a pain-seeking behavior in the ED, he decided to leave AMA so that he can use heroin. He returned to the ED today due to worsening swelling and discharges and agreed to stay inpatient for further treatment and evaluation. He absolutely denies using any IV sites on his foot. No fever/chills, nausea/vomiting, chest pain, shortness of breath, or cough. Last heroin use was yesterday. No GI/ symptoms. Upon presentation, he was afebrile and hemodynamically stable. Labwork again showed leukocytosis of 18 but otherwise unremarkable. X-ray of the left foot demonstrated fractures involving proximal phalanges of left fourth and fifth digits. He was given IV vancomycin/Zosyn and transferred to [facility] for podiatry consultation. Past Med Surg Social Fam HX - Past Medical History Attestation: Yes The following information was validated with the patient. Medical history: hepatitis, hypertension Additional medical history: HEPATITIS C Psychiatric history: no psych history - Past Surgical History Surgical History: orthopedic, other (Right clavicle) Additional surgical history: CLAVICAL REPAIR AND FOOT SURGERY - Social History Smoking Status: Current every day smoker Smokeless Tobacco Status: No Alcohol use: none Drug use: marijuana, IV Drug Use, other Internal Medicine - H&P: Meds Allergy/AdvReac Type Severity Reaction Status Date / Time No Known Allergies Allergy Verified 09/16/18 04:09 All Systems PM: A 10-system review of systems was performed and is negative for pertinent findings except as documented above in the HPI. - Constitutional Vitals: Temp Pulse Resp BP Pulse Ox 98.1 F 81 18 164/103 100 02/03/19 17:29 02/03/19 17:29 02/03/19 17:29 02/03/19 17:29 04/25/19 17:29 Exam: General: Alert and oriented, not in acute distress. HEENT:EOMI, pupils equal, round and reactive. Cardiovascular:Normal S1 & S2, No JVD. Pulse regular. Lungs: clear to auscultation, no wheezes/rales Abdomen:Soft, non-tender, no rigidity. Extremities: L 4th toe with blisters and redness on dorsal aspect extending to midfoot, yellowish drainage noted along the plantar aspect of L 4th digits. Neurological:Normal cognition and motor skills. Non-focal Skin: Warm and dry Pulses:Carotid and radial pulses normal +2. Rest of the physical exam is non contributory - Assessment and Plan (1) Cellulitis of toe of left foot Current Visit: Yes Status: Acute Assessment and plan: Claims that it was preceded by traumatic event XR shows L 4th and 5th prox phalanges fractures left AMA on 02/01 after being advised for inpatient admission persistent leukocytosis of 18 Received IV VAnc/zosyn in the [facility] ED, continue purulent discharges noted on the plantar aspect of L 4th toe, would obtain wound culture blood cultures taken in the ED, follow up check ESR,CRP Podiatry consult called in from [place] ED, will await for their evaluation before further imaging (2) Toe fracture, left Current Visit: Yes Status: Acute Assessment and plan: podiatry consult as above Qualifiers: Encounter type: initial encounter Toe: lesser toe Fracture type: closed Phalanx: proximal Fracture alignment: nondisplaced Qualified Code(s): S92.515A - Nondisplaced fracture of proximal phalanx of left lesser toe(s), initial encounter for closed fracture (3) IV drug abuse Current Visit: Yes Status: Chronic Assessment and plan: active heroin user counseling provided (4) DVT prophylaxis Current Visit: No Status: Acute Assessment and plan: EPCD - Time Spent With Patient Total time spent is greater than 50% in coordination of care (as documented) at patient's floor/unit and/or counseling patient: 25 - 35 minutes
[2019-02-03] MEDS: OXYCODONE Oral CONC 10 MG/0.5 ML ORAL.SYG SL PRN (20:54)
[2019-02-03] MEDS: Piperacillin/Tazobactam 3.375 GM in 0.9 % Sodium Chloride Mini Bag 100 ML IVPB SCH (23:34)
[2019-02-04 02:31] LABS: Basophils % 0.2 %; Eosinophils # 0.4 K/mcL (0.0-0.6); Eosinophils % 2.8 %; Hematocrit 37.9 % (37.5-50.1); Immature Granulocytes % 0.5 % (0-4); Lymphocytes # 1.9 K/mcL (0.6-4.6); Lymphocytes % 13.3 %; Mean Corpuscular HGB Conc 31.7 g/dL (31.6-35.5); Mean Corpuscular Hemoglobin 27.8 pg (28.0-33.3); Mean Corpuscular Volume 87.9 fL (83.0-100.0); Mean Platelet Volume 10.6 fL (9.4-12.4); Monocytes # 1.4 K/mcL (0.0-1.3); Monocytes % 9.4 %; Neutrophils # 10.7 K/mcL (1.6-8.9); Platelet Count 298 K/mcL (140-400); Red Blood Count 4.31 M/mcL (4.19-5.50); Red Cell Distribution Width 14.7 % (11.5-14.5); Segmented Neutrophils % 73.8 %
[2019-02-04 02:46] LABS: BUN/Creatinine Ratio 17 (6-26); Blood Urea Nitrogen 13 mg/dL (6-20); Calcium 8.3 mg/dL (8.6-10.3); Carbon Dioxide 28 mEq/L (23-29); Chloride 108 mEq/L (98-107); Glucose 112 mg/dL (70-105); Osmolality,Calculated 291 (280-300); Potassium 4.1 mEq/L (3.5-5.1); Sodium 140 mEq/L (136-145); eGFR For Non-African Americans > 60 (> 60)
[2019-02-04] MEDS: OXYCODONE Oral CONC 10 MG/0.5 ML ORAL.SYG SL PRN ×2 (03:05→11:03)
[2019-02-04] MEDS ORDERED: *HR* LORazepam 2 MG/ML VIAL IVP ONE ×2 (04:47→23:21)
[2019-02-04 05:26] LABS: Amphetamine Screen,Urine Negative ng/mL (Cutoff=1000); Barbiturate Screen,Urine Negative ng/mL (Cutoff=200); Benzodiazepines Screen,Urine Negative ng/mL (Cutoff=200); Cannabinoid Screen,Urine Positive ng/mL (Cutoff = 50); Cocaine Screen,Urine Negative ng/mL (Cutoff= 300); Opiate Screen,Urine Positive ng/mL (Cutoff=300); Phencyclidine Screen,Urine Negative ng/mL (Cutoff=25)
[2019-02-04] MEDS: Piperacillin/Tazobactam 3.375 GM in 0.9 % Sodium Chloride Mini Bag 100 ML IVPB SCH ×3 (10:57→23:42)
[2019-02-04] MEDS: hydroCHLOROthiazide 25 MG TABLET PO SCH (10:58)
[2019-02-04] MEDS: amLODIPine 5 MG TABLET PO SCH (10:58)
--- NOTE | 2019-02-04 12:07 | Podiatry Consult Note ---
Date of Encounter: 02/04/19 Time of Encounter: 10:30 Assessment and Plan (1) Toe fracture, left Current visit: Yes Status: Acute ASSESSMENT: Stable open toe fracture noted- bones in alignment per imagining without evidence of osteomyelitis. Toe #5 in proper alignment and without obvious abnormality Upon discharge will protect with bulk dressing and immobilize and offload in post operative shoe for healing. Toe #5 is non operative intervention Qualifiers: Encounter type: initial encounter Toe: lesser toe Fracture type: open Phalanx: proximal Fracture alignment: nondisplaced Qualified Code(s): S92.515B - Nondisplaced fracture of proximal phalanx of left lesser toe(s), initial encounter for open fracture (2) Cellulitis of toe of left foot Current visit: Yes Status: Acute ASSESSMENT: Open fracture of the left toe #4, fracture of toe #5 left with associated ulceration and active cellulitis PLAN: Large open lesion with probe to IP joint to lateral aspect of toe #4 left with associated drainage and cellulitis of toe Cleansed toe with saline Cultures obtained at bedside- patient currently on vanc and zosyn Due to exposure of bone and extent of cellulitis and ulceration will likely require amputation for closure Discussed plan with and will plan for amputation of toe later this evening Patient made NPO Cleansed with saline, adaptic, 4x4 and kerlix placed at this time until patient goes to surgery- further dressing change orders will be placed post operative History of Present Illness HPI: Mr. Mar is a 48 year old male with history of hypertension-noncompliant to medications and IV drug use was transferred from [place] ED due to L toe ce llulitis. Per internal med reports He was first seen at the OSH on 02/01 for the same problem. He was advised for inpatient admission for IV antibiotics but, after demonstrating a pain-seeking behavior in the ED, he decided to leave AMA so that he can use heroin. He returned to the ED due to worsening swelling and discharge and agreed to stay inpatient for further treatment and evaluation. Patient was started on vanc and zosyn and podiatry was consulted for management of wound and toe. No fever/chills, nausea/vomiting, chest pain, shortness of breath, or cough. Last heroin use was yesterday. No GI/ symptoms. Upon presentation, he was afebrile and hemodynamically stable. Minimal conversation- patient awake but minimally responds to questions. WBC 14. ESR 31 CRP 57. X-ray of the left foot demonstrated fractures involving proximal phalanges of left fourth and fifth digits. He was given IV vancomycin/Zosyn. Patient denies any IV drug injection to foot or toes. There is a scar noted to the foot which patient states was a previous abscess. Unknown bacteria. Past Med Surg Social Fam HX - Past Medical History Medical history: hepatitis, hypertension Additional medical history: HEPATITIS C Psychiatric history: no psych history - Past Surgical History Surgical History: orthopedic, other Additional surgical history: CLAVICAL REPAIR AND FOOT SURGERY - Social History Smoking Status: Current every day smoker Packs per day: 1 Smokeless Tobacco Status: No Alcohol use: none Drug use: marijuana, IV Drug Use, other - Family History Mother Hx Family Cardiac Disorders: Yes (htn) Medications and Allergies RX: No Known Home Drugs 02/03/19 [History] Allergy/AdvReac Type Severity Reaction Status Date / Time No Known Allergies Allergy Verified 02/03/19 20:33 All Systems Reviewed: as per HPI Physical Exam - Constitutional Vitals: Temp Pulse Resp BP Pulse Ox 98.3 F 84 14 179/110 98 02/04/19 11:11 02/04/19 11:11 02/04/19 11:11 02/04/19 11:11 02/04/19 11:11 Exam: General Examination: CONSTITUTIONAL: Alert, oriented, in no acute distress - patient minimally participates in answering questions. EXTREMITIES: CFT 3 seconds all toes. Edema +1 and pedal pulses palpable. SKIN: see below. Scar noted to lateral dorsal foot- patient notes this as site of previous abscess. NEUROLOGIC: Intact sensation to light and moderate touch ULCERATION: left toe #4- there is a large amount of noted edema erythema and warmth. There is thick purulent drainage noted to toe with associated maceration of the surrounding tissue. There is devitalization of the tissue to entire circumference of the toe however most noted there is a large ulceration to the lateral aspect of the toe with exposure of the IP joint capsule. Wound measures approx 2.5cmx2.5cmx0.4cm with tracking of the wound to the plantar aspect of the toe 1.3cm. There is noted odor. Pain with palpation of the toe. Results - Labs Result Diagrams: 02/04/19 01:59 04/26/19 01:59 Labs: Abnormal lab results WBC 14.5 K/mcL (4.3-11.1) H 02/04/19 01:59 Hgb 12.0 g/dL (12.9-16.9) L 02/04/19 01:59 MCH 27.8 pg (28.0-33.3) L 02/04/19 01:59 RDW 14.7 % (11.5-14.5) H 02/04/19 01:59 Neutrophils # 10.7 K/mcL (1.6-8.9) H 02/04/19 01:59 Monocytes # 1.4 K/mcL (0.0-1.3) H 02/04/19 01:59 ESR 31 mm/hr (0-10) H 02/04/19 01:59 Chloride 108 mEq/L (98-107) H 02/04/19 01:59 Glucose 112 mg/dL (70-105) H 02/04/19 01:59 Calcium 8.3 mg/dL (8.6-10.3) L 02/04/19 01:59 C-Reactive Protein 57 mg/L (Less than 10) H 02/04/19 01:59 Urine Opiates Screen Positive ng/mL (Apbgrj=917) H 02/04/19 04:55 U Marijuana (THC) Screen Positive ng/mL (Cutoff = 50) H 02/04/19 04:55 H & H 02/04/19 Range/Units 01:59 Hgb 12.0 L (12.9-16.9) g/dL Hct 37.9 (37.5-50.1) % All other labs normal. Consult Discharge Plan - Plan Referrals: NONE,PCP [Primary Care Provider] -
--- NOTE | 2019-02-04 12:19 | Internal Med Progress Note ---
Hospitalist Progress Note - Encounter Date of Encounter: 02/04/19 Time of Encounter: 10:45 - Subjective Interval History: His left toe discomfort is improving. No fever/chills or nausea/vomiting. Denies any chest pain. - Exam Vitals: Temp Pulse Resp BP Pulse Ox 98.3 F 84 14 179/110 98 02/04/19 11:11 02/04/19 11:11 02/04/19 11:11 02/04/19 11:11 02/04/19 11:11 Exam: General: Alert and oriented, not in acute distress. Cardiovascular:Normal S1 & S2, No JVD. Pulse regular. Lungs: clear to auscultation, no wheezes/rales Abdomen:Soft, non-tender, no rigidity. Extremities: L foot dressing c/d/i Neurological:Normal cognition and motor skills. Non-focal - Assessment and Plan (1) Cellulitis of toe of left foot Current Visit: Yes Status: Acute Assessment and Plan: Claims that it was preceded by traumatic event XR shows L 4th and 5th prox phalanges fractures left AMA on 02/01 after being advised for inpatient admission but returned on 02/03 ESR/CRP 31/57 respectively WBC improving on IV Vanc/zosyn, continue Follow up on wound and blood cultures Podiatry input appreciated (2) Toe fracture, left Current Visit: Yes Status: Acute Assessment and Plan: podiatry consult as above (3) Hypertension Current Visit: Yes Status: Chronic Assessment and Plan: Poorly controlled, complicated by noncompliance Will start Norvasc and hydrochlorothiazide PRN hydralazine (4) IV drug abuse Current Visit: Yes Status: Chronic Assessment and Plan: active heroin user counseling provided (5) DVT prophylaxis Current Visit: No Status: Acute Assessment and Plan: EPCD - Time Spent with Patient Total time spent is greater than 50% in coordination of care (as documented) at patient's floor/unit and/or counseling patient: 25 - 35 minutes Plan of Care Discussed with: patient (discussed with RN) Internal Medicine: Result - Labs CBC & Chem 7: 02/04/19 01:59 02/04/19 01:59 Labs: Short CBC 02/04/19 Range/Units 01:59 WBC 14.5 H (4.3-11.1) K/mcL Hgb 12.0 L (12.9-16.9) g/dL Hct 37.9 (37.5-50.1) % Plt Count 298 (140-400) K/mcL Neutrophils # 10.7 H (1.6-8.9) K/mcL BMP 02/04/19 01:59 Sodium 140 Potassium 4.1 Chloride 108 H Carbon Dioxide 28 BUN 13 Creatinine 0.78 Glucose 112 H Calcium 8.3 L Consult Discharge Plan - Plan Referrals: NONE,PCP [Primary Care Provider] - (2) Toe fracture, left Qualifiers: Encounter type: initial encounter Toe: lesser toe Fracture type: open Phalanx: proximal Fracture alignment: nondisplaced Qualified Code(s): S92.515B - Nondisplaced fracture of proximal phalanx of left lesser toe(s), initial encounter for open fracture (3) Hypertension Qualifiers: Hypertension type: essential hypertension Qualified Code(s): I10 - Essential (primary) hypertension
[2019-02-04] MEDS ORDERED: Lidocaine -MPF 2% 2 ML VIAL ONE (15:49)
[2019-02-04] MEDS ORDERED: *HR* FentaNYL (PF) 100 MCG/2 ML VIAL ONE (15:49)
[2019-02-04] MEDS ORDERED: *HR* Midazolam HCl 2 MG/2 ML VIAL ONE (15:49)
[2019-02-04] MEDS ORDERED: *HR* Propofol 200 MG/20 ML VIAL IVP ONE (15:52)
[2019-02-04] MEDS ORDERED: NS INTRAART ONE ×2 (16:00)
[2019-02-04] MEDS ORDERED: ROPIVACAINE INTRAART ONE ×2 (16:00)
--- NOTE | 2019-02-04 16:40 | Anesthesia Evaluation PreOp ---
Date of Encounter: 02/04/19 Time of Encounter: 16:38 - Past History Planned Operation: I & D Left 4th Toe Cardiac History: HTN, Hyperlipidemia Pulmonary History: Smoker (22 years), COPD, Snore TIME STUDY TECHNOLOGIST History: Denies Any Significant HX Other Medical History: Hepatic (hepatitis C) Anesthesia History: No Prior Anesthetic Complications, Past Anesthesia Alcohol Use: none Drug use: marijuana, IV Drug Use, other Medications and Allergies No Known Home Drugs 02/03/19 [History] Allergy/AdvReac Type Severity Reaction Status Date / Time No Known Allergies Allergy Verified 02/03/19 20:33 - Meds/Allergy Pre-op Review Medications Reviewed: Yes Allergies Reviewed: Yes Beta Blockers on Current Med List: No Anesthesia Results - Labs 02/04/19 01:59 02/04/19 01:59 - Imaging EKG: report reviewed (02/01/[address] & T-WAVE ABNORMALITY) Anesthesia Exam Vital Signs/O2 Sat, Most Current Temp Pulse Resp BP Pulse Ox 98.4 F 81 16 190/113 98 02/04/19 15:57 02/04/19 15:57 02/04/19 15:57 02/04/19 15:57 02/04/19 15:57 Height: 6'/1.83m Weight: 191 lbs/86.7 kg - HEENT Pupil (Motor): EOMI Mallampati: II Teeth: Missing, Poor dentition Denture Type: Upper: Complete Oral Opening: Greater than 3 - TIME STUDY TECHNOLOGIST LOC: Oriented TIME STUDY TECHNOLOGIST Motor: Normal RUE, Normal LUE, Normal RLE, Normal LLE, Normal Face TIME STUDY TECHNOLOGIST Sensory: Normal: RUE, LUE, RLE, Face, Deficit: LLE - Cardiac Rhythm: Regular Murmur: None - Pulmonary Breath Sounds: bilateral Clear Respiratory Effort: Symmetrical Anesthesia Assess/Plan ASA Score: 3 Level of consciousness: Cooperative, Oriented, Tranquil Anesthetic Plan: General Monitoring Plan: Standard Monitors Recovery Plan: PACU
[2019-02-04] MEDS ORDERED: traMADol 50 MG TABLET PO ONE (19:42)
[2019-02-04] MEDS ORDERED: Melatonin 3 MG TABLET PO PRN (20:55)
[2019-02-04] MEDS ORDERED: tiZANidine 4 MG TABLET PO ONE (20:55)
[2019-02-05 01:30] LABS: Basophils % 0.3 %; Eosinophils # 0.2 K/mcL (0.0-0.6); Eosinophils % 1.4 %; Hematocrit 41.7 % (37.5-50.1); Immature Granulocytes % 0.3 % (0-4); Lymphocytes # 2.2 K/mcL (0.6-4.6); Lymphocytes % 15.3 %; Mean Corpuscular HGB Conc 32.6 g/dL (31.6-35.5); Mean Corpuscular Hemoglobin 27.6 pg (28.0-33.3); Mean Corpuscular Volume 84.6 fL (83.0-100.0); Mean Platelet Volume 10.1 fL (9.4-12.4); Monocytes % 6.9 %; Neutrophils # 10.8 K/mcL (1.6-8.9); Platelet Count 371 K/mcL (140-400); Red Blood Count 4.93 M/mcL (4.19-5.50); Red Cell Distribution Width 14.6 % (11.5-14.5); Segmented Neutrophils % 75.8 %
[2019-02-05 01:32] LABS: Hemoglobin 13.6 g/dL (12.9-16.9)
[2019-02-05 01:53] LABS: BUN/Creatinine Ratio 17 (6-26); Blood Urea Nitrogen 12 mg/dL (6-20); Calcium 9.3 mg/dL (8.6-10.3); Carbon Dioxide 25 mEq/L (23-29); Chloride 106 mEq/L (98-107); Glucose 105 mg/dL (70-105); Osmolality,Calculated 270 (280-300); Potassium 3.5 mEq/L (3.5-5.1); Sodium 130 mEq/L (136-145); eGFR For Non-African Americans > 60 (> 60)
[2019-02-05] MEDS ORDERED: Ropivicaine 0.25% 20 ml Syringe INTRAART ONE (06:00)
[2019-02-05] MEDS ORDERED: *HR* Labetalol 20 MG/4 ML SYRINGE IVP PRN ×2 (07:16→11:40)
[2019-02-05] MEDS: hydroCHLOROthiazide 25 MG TABLET PO SCH (07:45)
[2019-02-05] MEDS: amLODIPine 5 MG TABLET PO SCH (07:45)
[2019-02-05] MEDS: Piperacillin/Tazobactam 3.375 GM in 0.9 % Sodium Chloride Mini Bag 100 ML IVPB SCH (07:46)
[2019-02-05] MEDS: OXYCODONE Oral CONC 10 MG/0.5 ML ORAL.SYG SL PRN ×2 (08:02→20:52)
[2019-02-05] MEDS ORDERED: ROPIVACAINE/PF/NS SYRINGE INTRAART ONE (09:31)
[2019-02-05] MEDS ORDERED: Lidocaine -MPF 2% 2 ML VIAL ONE (09:50)
[2019-02-05] MEDS ORDERED: Ondansetron 4 MG/2 ML VIAL ONE (09:50)
[2019-02-05] MEDS ORDERED: *HR* FentaNYL (PF) 100 MCG/2 ML VIAL ONE (09:50)
[2019-02-05] MEDS ORDERED: *HR* Midazolam HCl 2 MG/2 ML VIAL ONE (09:50)
[2019-02-05] MEDS ORDERED: Dexamethasone 4 MG/ML VIAL ONE (09:50)
[2019-02-05] MEDS ORDERED: *HR* Propofol 200 MG/20 ML VIAL IVP ONE (09:51)
[2019-02-05] MEDS ORDERED: Aminoglycoside Consult 1 EACH MC ONE (09:52)
[2019-02-05] MEDS ORDERED: CloNIDine Patch 0.1 MG PATCH (WEEKLY) ONE (10:02)
--- NOTE | 2019-02-05 10:56 | Internal Med Progress Note ---
Hospitalist Progress Note - Encounter Date of Encounter: 02/05/19 Time of Encounter: 09:15 - Subjective Interval History: No acute events overnight, no fever/chills or N/V. - Exam Vitals: Temp Pulse Resp BP Pulse Ox 97.9 F 88 18 180/104 98 02/05/19 07:07 02/05/19 07:07 02/05/19 07:07 02/05/19 07:07 02/05/19 07:07 Exam: General: Alert and oriented, not in acute distress. Cardiovascular:Normal S1 & S2, No JVD. Pulse regular. Lungs: clear to auscultation, no wheezes/rales Abdomen:Soft, non-tender, no rigidity. Extremities: L foot dressing c/d/i Neurological:Normal cognition and motor skills. Non-focal - Assessment and Plan (1) Cellulitis of toe of left foot Current Visit: Yes Status: Acute Assessment and Plan: Claims that it was preceded by traumatic event XR shows L 4th and 5th prox phalanges fractures left AMA on 02/01 after being advised for inpatient admission but returned on 02/03 ESR/CRP /57 respectively wound culture growing S. aureus WBC improving on IV Vanc/zosyn, will d/c zosyn given the wound culture finding Follow up on wound and blood cultures Podiatry input appreciated (2) Toe fracture, left Current Visit: Yes Status: Acute Assessment and Plan: podiatry consult as above, for amputation today (3) Hypertension Current Visit: Yes Status: Chronic Assessment and Plan: Poorly controlled, complicated by noncompliance started on Norvasc and hydrochlorothiazide 02/04 PRN labetalol (4) IV drug abuse Current Visit: Yes Status: Chronic Assessment and Plan: active heroin user counseling provided (5) DVT prophylaxis Current Visit: No Status: Acute Assessment and Plan: EPCD - Time Spent with Patient Total time spent is greater than 50% in coordination of care (as documented) at patient's floor/unit and/or counseling patient: 25 - 35 minutes Plan of Care Discussed with: patient Internal Medicine: Result - Labs CBC & Chem 7: 02/05/19 01:05 02/05/19 01:05 Labs: Short CBC 02/05/19 Range/Units 01:05 WBC 14.2 H (4.3-11.1) K/mcL Hgb 13.6 D (12.9-16.9) g/dL Hct 41.7 (37.5-50.1) % Plt Count 371 (140-400) K/mcL Neutrophils # 10.8 H (1.6-8.9) K/mcL BMP 02/05/19 01:05 Sodium 130 L D Potassium 3.5 Chloride 106 Carbon Dioxide 25 BUN 12 Creatinine 0.71 Glucose 105 Calcium 9.3 Consult Discharge Plan - Plan Referrals: NONE,PCP [Primary Care Provider] - (2) Toe fracture, left Qualifiers: Encounter type: initial encounter Toe: lesser toe Fracture type: open Phalanx: proximal Fracture alignment: nondisplaced Qualified Code(s): S92.515B - Nondisplaced fracture of proximal phalanx of left lesser toe(s), initial encounter for open fracture (3) Hypertension Qualifiers: Hypertension type: essential hypertension Qualified Code(s): I10 - Essential (primary) hypertension
--- NOTE | 2019-02-05 11:12 | Orthopedic Operative Note ---
Date of procedure: 02/05/19 Pre-op diagnosis: #1: Necrotic fourth toe with abscess/osteomyelitis left foot Post-op diagnosis: same Procedure: 02/05/19 11:11 #1: Incision and drainage fourth toe, and left foot #2: Amputation fourth toe left foot Implants: None Complications: None Anesthesia: local, other (General anesthesia per LMA) Local Anesthetics: Other (Ropivacaine) Surgeon: Bryan Napoles Was there an medical billing assistant present: No Estimated blood loss (cc): 5 Tourniquet Time (Minutes): 22 Specimen: Toe #4 left foot Condition: stable Disposition: PACU Procedure in Detail: 02/05/19 11:12 Indications for procedure: Patient with a large open draining wound lateral aspect of the fourth toe left foot that probes to bone. History of open fracture fourth toe. Risks versus the benefits as well as alternatives to surgical intervention were discussed with the patient in detail. Risks include but are not limited to loss of toes foot leg or life DVT blood clots need for fu rther surgery failure procedure produce desired results. Patient voiced comprehension it ample opportunity ask questions about planned procedure and anesthesia. Those questions are answered to his satisfaction. Details in summary of procedure: Patient was brought to surgical suite. A sign in procedure was performed. Patient was transferred to the surgical table and positioned properly safely securely. Left foot was elevated on foam block. After smooth induction general anesthesia was achieved. That point left ankle was prepped with alcohol 3 times. Modified ankle block was carried out with ropivacaine without complication. We noted a previous abscess/scar on the dorsal lateral aspect left foot with significant fibrosis of the soft tissue with poor skin turgor proximal to the fourth toe. A complete roll of cast padding was placed above the malleolus and a tourniquet was then applied without difficulty or complication. The left foot was then prepped and draped in usual sterile manner. Surgical timeout was taken. Left foot was elevated and exsanguinated and the tourniquet inflated to 250 mmHg for approximately 20 minutes. A standard racquet incision was begun sulcus the fourth toe and brought proximally and then dorsally onto the distal medial aspect of the fourth toe salvaging the soft tissue flap to create coverage because of the significant erosion and ulceration on the lateral aspect of the toe. This incision was carried directly down to the phalanx. Then along the midline of the toe brought proximally to the metatarsophalangeal joint. The lateral incision was then begun sulcus as well and brought laterally just proximal to the ulceration approximately 2 mm away from the ulceration edge and then proximally to meet the medial incision on the dorsal aspect of the #4 MTPJ. These incisions were carried directly down to bone. The skin flap medially was then raised to the level of periosteum. The fracture line across the base the proximal phalanx was noted and completely from the base the proximal phalanx. This was a through and through fracture. Soft tissue was then incised laterally as well and the toe was then amputated without difficulty or complication. Serous drainage was noted on the lateral aspect of the wound it was medially cultured aerobic and anaerobic. The remaining base of proximal phalanx was resected sharply with a #15 scalpel blade by dividing the medial lateral collateral dorsal plantar ligaments at the level of the MTPJ. After removal of the base the proximal phalanx inspection the head of the fourth meta tarsal revealed 18 pristine metatarsal head of normal color texture density. Remainder the tissue was debrided accordingly throughout the wound with Metzenbaum scissor and pickup by excisional methods. No complications encountered. The tourniquet was released. Immediate hyperemic response was noted to all toes including the wound. The wound was then flushed with copious must sterile saline. The wound was then debrided with ultrasonics Misonix debrider completely. Satisfied with a completely clean wound no further devitalized tissue remained closure was uneventful using 30 and 4-0 Prolene. The wound was dressed with a 2 x 4 PuraPly antimicrobial wound matrix over the incision itself followed by Adaptic 4 x 4's and Kerlix and a mild compressive dressing. After release the tourniquet as stated immediate hyperemic response was noted. There is no necessity to use Bovie ligature for hemostasis. Toes remained with a capillary rebound time of less than 3 seconds after application of the dressing. Patient was then extubated and sent to PACU in good condition with vital signs stable. Estimated blood loss to be 5 mL or less.
[2019-02-05] MEDS ORDERED: Ondansetron 4 MG/2 ML VIAL IVP PRN (11:40)
[2019-02-05] MEDS ORDERED: Ketorolac 15 MG/ML VIAL IVP PRN (11:40)
[2019-02-05] MEDS ORDERED: Melatonin 3 MG TABLET PO PRN (11:40)
[2019-02-05] MEDS ORDERED: Naloxone 0.4 MG/ML INJ IVP PRN (11:40)
[2019-02-05] MEDS ORDERED: Ketorolac 30 MG/ML VIAL IVP PRN (11:40)
--- NOTE | 2019-02-05 15:31 | Anesthesia Evaluation Post Op ---
Date of Encounter: 02/05/19 Time of Encounter: 11:42 - Vital Signs Vital Signs: Vital Signs Temp Pulse Resp BP Pulse Ox 02/05/19 14:05 98.2 F 84 16 162/94 99 02/05/19 13:00 98.4 F 86 16 147/99 97 02/05/19 12:25 98.2 F 85 14 134/86 97 02/05/19 11:55 97.8 F 78 16 150/93 97 02/05/19 11:41 98.0 F 80 16 199/80 97 02/05/19 11:31 80 18 119/82 97 02/05/19 11:21 81 14 115/75 97 02/05/19 11:11 98.1 F 82 22 134/91 98 02/05/19 07:07 97.9 F 88 18 180/104 98 02/04/19 22:59 98.5 F 86 17 184/104 92 02/04/19 19:09 98.6 F 97 17 185/105 96 02/04/19 15:57 98.4 F 81 16 190/113 98 Intake and Output 02/04/19 02/05/19 02/05/19 23:59 07:59 15:59 Intake Total 350 / 1400 100 / 100 Output Total 1500 / 4900 630 / 630 Balance -1150 / -3500 100 / -530 -630 / -530 Intake: IV Fluids 350 / 800 100 / 100 Zosyn 3.375 GM In 0.9 % Sodium 100 / 300 100 / 100 Chloride (Mini-Bag +) 100 ML @ 25 mls/hr IVPB Q8HR [facility] Rx#: [id number] Vancocin 1,250 MG In 0.9 % 250 / 500 Sodium Chloride 250 ML @ 166. 667 mls/hr IVPB Q12H [facility] Rx#: [id number] Output: Urine 1500 / 4900 625 / 625 Estimated Blood Loss 5 / 5 Other: # Voids 1 - Lungs Lungs: Clear Ascult./Percussion - Airway Airway: Non-obstructed - Cardiovascular Regular Rate - Mental Status Mental Status: Alert & Oriented, Answers Appropriately - Pain Pain Scale: 0 Pain Scale used: Numeric (1 - 10) - Nausea Vomiting Nausea Vomiting: Not Present - Hydration Hydration: Tolerates oral liquids, Able to void - Discharge PostOp Status: Transfer Patient to floor Anes Supervising Prov Stmt: PT seen/evaluated, VSS and has met criteria for discharge to floor. - MD Daniela
[2019-02-06 03:50] LABS: Basophils % 0.2 %; Eosinophils # 0.1 K/mcL (0.0-0.6); Eosinophils % 0.3 %; Hematocrit 47.2 % (37.5-50.1); Immature Granulocytes % 0.5 % (0-4); Lymphocytes # 2.1 K/mcL (0.6-4.6); Lymphocytes % 12.6 %; Mean Corpuscular HGB Conc 32.4 g/dL (31.6-35.5); Mean Corpuscular Hemoglobin 27.6 pg (28.0-33.3); Mean Corpuscular Volume 85.2 fL (83.0-100.0); Mean Platelet Volume 9.7 fL (9.4-12.4); Monocytes # 1.1 K/mcL (0.0-1.3); Monocytes % 6.3 %; Neutrophils # 13.5 K/mcL (1.6-8.9); Platelet Count 484 K/mcL (140-400); Red Blood Count 5.54 M/mcL (4.19-5.50); Red Cell Distribution Width 14.6 % (11.5-14.5); Segmented Neutrophils % 80.1 %
[2019-02-06 03:51] LABS: Hemoglobin 15.3 g/dL (12.9-16.9)
[2019-02-06 04:08] LABS: BUN/Creatinine Ratio 24 (6-26); Blood Urea Nitrogen 17 mg/dL (6-20); Calcium 9.9 mg/dL (8.6-10.3); Carbon Dioxide 28 mEq/L (23-29); Chloride 99 mEq/L (98-107); Glucose 113 mg/dL (70-105); Osmolality,Calculated 282 (280-300); Sodium 135 mEq/L (136-145); eGFR For Non-African Americans > 60 (> 60)
[2019-02-06 07:31] VITALS: BP 169/113
[2019-02-06] MEDS: OXYCODONE Oral CONC 10 MG/0.5 ML ORAL.SYG SL PRN (07:52)
[2019-02-06] MEDS ORDERED: amLODIPine 5 MG TABLET PO SCH ×2 (09:00)
[2019-02-06] MEDS ORDERED: hydroCHLOROthiazide 25 MG TABLET PO SCH (09:00)
--- NOTE | 2019-02-06 09:31 | Discharge Summary ---
- NOTES TO OUTPATIENT PROVIDER Notes to Outpatient Provider: Left AMA after being treated for L 4th toe open fracture and cellulitis. S/p 4th toe amputation. Given scripts for PO Doxy and Norvasc and strongly advised to follow up with podiatry and PCP. Orders not resulted at time of discharge: Pending orders 02/03/19 21:20 Culture,Wound [RM] Routine 02/04/19 12:12 Culture,Anaerobic [RM] Routine 02/05/19 11:21 Surgical Pathology [PTH] Routine 02/05/19 14:11 Culture,Wound [RM] Routine Date of Encounter: 02/06/19 Time of Encounter: 07:15 - Discharge Diagnosis (1) Cellulitis of toe of left foot Priority: Secondary Status: Acute (2) Toe fracture, left Priority: Primary Status: Acute Qualifiers: Encounter type: initial encounter Toe: lesser toe Fracture type: open Phalanx: proximal Fracture alignment: nondisplaced Qualified Code(s): S92.515B - Nondisplaced fracture of proximal phalanx of left lesser toe(s), initial encounter for open fracture (3) Hypertension Priority: Secondary Status: Chronic Qualifiers: Hypertension type: essential hypertension Qualified Code(s): I10 - Essential (primary) hypertension (4) IV drug abuse Priority: Secondary Status: Chronic (5) DVT prophylaxis Priority: Secondary Status: Acute Hospital course: Mr. Mar is a 48 year old male with history of IV drug use and hypertension was admitted for left toe open fracture associated with cellulitis. Started on IV Abx and underwent L 4th toe amputation on 02/05. Wound culture showed S.aureus preliminary. Unfortunately, he decided to leave AMA on POD #1 although he was informed of the risk of worsening infection including OM, possible amputation of the foot, sepsis, and . He will be given a script for abx and norvasc for HTN and advised to follow up with PCP/podiatry as outpatient if he desires to. Discharge discussed with: patient, nurse, oracle database consultant - Time Spent with Patient Total time spent providing and/or coordinating discharge services: 33 mins - Discharge Medications Prescriptions: New Doxycycline 100 mg PO BID 7 Days #14 capsule amLODIPine [Norvasc] 10 mg PO DAILY #60 tablet Home Medications: Doxycycline 100 mg PO BID 7 Days #14 capsule 02/06/19 [Rx] amLODIPine [Norvasc] 10 mg PO DAILY #60 tablet 02/06/19 [Rx] Allergies/Adverse Reactions: Allergy/AdvReac Type Severity Reaction Status Date / Time No Known Allergies Allergy Verified 02/03/19 20:33 Date of admission: 02/03/19 17:11 Primary care physician: PCP NONE Consults: 02/03/19 17:57 Consult to Podiatry [CONS] Routine Consulting Provider: [facility] Reason for Consult: Transferred from [place] for left toe cellulitis with fourth and fifth proximal phalanx fractures Call Completed: Yes - Constitutional Vitals: Temp Pulse Resp BP Pulse Ox 98.3 F 95 16 169/113 98 02/06/19 07:30 02/06/19 07:30 02/06/19 07:30 02/06/19 07:30 02/06/19 07:30 Exam: General: Alert and oriented, not in acute distress. Cardiovascular:Normal S1 & S2, No JVD. Pulse regular. Lungs: clear to auscultation, no wheezes/rales Abdomen:Soft, non-tender, no rigidity. Extremities: L foot dressing c/d/i Neurological:Normal cognition and motor skills. Non-focal - Patient Status Disposition: Left Against Medical Advice - Discharge Instructions Instructions: Cellulitis (DC), Chronic Hypertension (DC) Follow Up With: NONE,PCP [Primary Care Provider] -
== END 2019-02-06 09:53 | disposition left against medical advice (07) ==
LOC: 3NENU → SUATTDRO 17:11 → 3BNU 02-05 19:45
PROVIDERS: ADMIT Student in an Organized Health Care Education/Training Program; ATTEND Internal Medicine